=== PATIENT | female | born 1935 | race Caucasian/White ===

== ENCOUNTER 2019-05-03 16:58 | Emergency (ER) | payer OTHER ==
[2019-05-03 17:31] VITALS: TEMP 97.3; BMI 25.0
[2019-05-03 18:04] LABS: BASO % 0.4 % (0-2.0); EOS % 0.2 % (0-4.5); HEMOGLOBIN 13.7 GM/dl (10.7-15.3); MCH 30.7 pg (25.7-33.7); MCHC 33.5 g/dl (32.0-36.0); MEAN CELL VOLUME 91.8 fl (80-96); MONO % 4.6 % (3.8-10.2); NEUT % 82.8 % (42.8-82.8); PLATELET COUNT 194 K/MM3 (134-434); RBC 4.47 M/mm3 (3.60-5.2); RDW 11.8 % (11.6-15.6); WHITE BLOOD COUNT 8.7 K/mm3 (4.0-10.8)
[2019-05-03 18:18] LABS: ALBUMIN 4.2 g/dl (3.4-5.0); CALCIUM 9.3 mg/dl (8.5-10); CREATININE 0.6 mg/dl (0.55-1.3); POTASSIUM 4.2 mmol/L (3.5-5.1); TOT PROT 6.9 g/dl (6.4-8.2)
[2019-05-03] MEDS ORDERED: ACETAMINOPHEN 325 MG TABLET (FP) PO ONE (18:50)
[2019-05-03] MEDS ORDERED: ACETAMINOPHEN 325 MG TABLET (FP) ONE (18:51)
[2019-05-03 18:59] VITALS: BP 199/103; PULSE 65
[2019-05-03] MEDS ORDERED: amLODIPine BESYLATE 5 MG TABLET (FP) PO ONE (19:01)
[2019-05-03] MEDS ORDERED: amLODIPine BESYLATE 5 MG TABLET (FP) ONE ×2 (19:01→19:04)
--- NOTE | 2019-05-03 19:01 | PDOC ---
Documentation entered by Ruth English SCRIBE, acting as scribe for Deejay Renteria MD. Deejay Renteria MD: This documentation has been prepared by the Tameka greoc Adrianna, SCRIBE, under my direction and personally reviewed by me in its entirety. I confirm that the documentation accurately reflects all work, treatment, procedures, and medical decision making performed by me. History of Present Illness - General Chief Complaint: Injury Stated Complaint: FELL - History of Present Illness Initial Comments: The patient is an 84 year old female, with a significant PMH of CABG, hypertension, hyperlipidemia, diabetes, and osteoporosis, who presents to the ED for evaluation s/p unwitnessed fall. Patients daughter assists in providing history at bedside. Patient was doing laundry earlier today, when she fell and hit the back of her head (unsure of what she hit it on). She denies any LOC, can recall the event, and called her daughter for assistance immediately. Daughter notes her blood sugar levels has been inconsistent the past 3 days, ranging from 350 to 180, and believes this may be causal. Patient additionally fell forward 3 days ago, but denies any LOC or head contusion at that time. Patient reports feeling shaky and foggy, stiff in her bilateral lower extremities, and endorses right shoulder pain and low back pain secondary to her most recent fall. She denies any head pain, but is on aspirin daily. Denies any recent changes to her daily medications. Daughter called her PCP today regarding her fall, who advised she come to the ED for further evaluation. Allergies: NKA, NKDA Surgical History: CABG Social History: Lives with family. Denies EtOH, tobacco, or illicit drug use PCP: Dr. Sanches Past History - Past Medical History Allergies/Adverse Reactions: Allergies Allergy/AdvReac Type Severity Reaction Status Date / Time No Known Allergies Allergy Verified 05/03/19 17:21 Home Medications: Ambulatory Orders Aspirin Coated [Ecotrin -] 81 mg PO DAILY 09/12/11 Calcium Carb/Vit D3/Minerals [Calcium 600 + D Tablet] 2 each PO DAILY tablet Atorvastatin Ca [Lipitor] 20 mg PO DAILY 05/03/19 Gabapentin 100 mg PO DAILY 05/03/19 Losartan Potassium [Cozaar -] 50 mg PO DAILY 05/03/19 Anemia: No Asthma: No Cancer: No Cardiac Disorders: Yes (CABG X 2 1992) CVA: No COPD: No CHF: No Dementia: No Diabetes: No GI Disorders: No Disorders: No HTN: Yes Hypercholesterolemia: No Liver Disease: No Seizures: No Thyroid Disease: No - Surgical History Abdominal Surgery: No Appendectomy: No Cardiac Surgery: Yes (CABG X2 1992) Cholecystectomy: No Lung Surgery: No Neurologic Surgery: No Orthopedic Surgery: No - Psycho Social/Smoking Cessation Hx Smoking Status: No Smoking History: Never smoked Have you smoked in the past 12 months: No Number of Cigarettes Smoked Daily: 0 Hx Alcohol Use: No Drug/Substance Use Hx: No Substance Use Type: None Hx Substance Use Treatment: No Review of Systems - Review of Systems Comments:: CONSTITUTIONAL: +Shaky. +Foggy. +S/p unwitnessed fall. Absent: Fever, Chills, Diaphoresis, Malaise, Loss of Appetite HEENT: +S/p head contusion secondary to fall. Absent: Rhinorrhea, Nasal Congestion, Throat Pain, Throat Swelling, Difficulty Swallowing, Mouth Swelling, Ear Pain, Eye Pain, Visual Changes CARDIOVASCULAR: Absent: Chest Pain, Syncope, Palpitations, Irregular Heart Rate, Lightheadedness , Peripheral Edema RESPIRATORY: Absent: Cough, Shortness of Breath, SOB with Exertion, Orthopnea, Wheezing, Stridor, Hemoptysis GASTROINTESTINAL: Absent: Abdominal pain, Abdominal Distension, Nausea, Vomiting, Diarrhea, Constipation, Melena, Hematochezia GENITOURINARY: Absent: Dysuria, Frequency, Urgency, Hesitancy, Flank Pain, Genital Pain MUSCULOSKELETAL: +Stiff bilateral lower extremities. +Right shoulder pain. +Low back pain. Absent: Joint Swelling, Neck Pain SKIN: Absent: Rash, Itching, Pallor HEMATOLOGIC/IMMUNOLOGIC: Absent: Easy Bleeding, Easy Bruising, Lymphadenopathy, Frequent infections ENDOCRINE: Absent: Unexplained Weight Gain, Unexplained Weight Loss, Heat Intolerance, Cold Intolerance NEUROLOGIC: +Foggy. Absent: Headache, Focal Weakness, Paresthesias, Vertigo, Lightheadedness, Unsteady Gait, Seizure, Mental Status Changes, Incontinence PSYCHIATRIC: Absent: Anxiety, Depression *Physical Exam - Vital Signs Last Vital Signs Temp Pulse Resp BP Pulse Ox 97.3 F L 72 17 184/99 H 100 05/03/19 16:59 05/03/19 16:59 05/03/19 16:59 05/03/19 16:59 05/03/19 16:59 - Physical Exam Comments: GENERAL: The patient is awake, alert, and fully oriented, in no acute distress. HEAD: Normal with no signs of trauma. No bruising, swelling, abrasions, or lacerations of the scalp. EYES: Pupils equal, round and reactive to light, extraocular movements intact, sclera anicteric, conjunctiva clear. ENT: Ears normal, nares patent, oropharynx clear without exudates. Moist mucous membranes. NECK: Normal range of motion, supple without lymphadenopathy, JVD, or masses. Cervical spine non-tender. LUNGS: Breath sounds equal, clear to auscultation bilaterally. No wheezes, and no crackles. HEART: Regular rate and rhythm, normal S1 and S2 without murmur, rub or gallop. ABDOMEN: Soft, nontender, normoactive bowel sounds. No guarding, no rebound. No masses. BACK: No spinal tenderness throughout. No rib cage tenderness. EXTREMITIES: +Ecchymosis to the medial aspect of the right knee. Normal range of motion, no edema. No clubbing or cyanosis. No cords, erythema, or tenderness. NEUROLOGICAL: Cranial nerves II through XII grossly intact. Normal speech, normal gait. Motor strength normal in all extremities, no pronator drift. Sensation intact throughout. PSYCH: Normal mood, normal affect. SKIN: +Ecchymosis to the medial aspect of the right knee. Warm, Dry, normal turgor. Heart Score/ECG Review - ECG Impressions Comment:: 05/03/19 18:52 Twelve-lead EKG shows normal sinus rhythm at 61 bpm. The axis is normal. The intervals are normal. There are no acute ST elevations or depressions. There are no abnormal T waves. Impression: Normal twelve-lead EKG. ED Treatment Course - LABORATORY CBC & Chemistry Diagram: 05/03/19 17:50 05/03/19 17:50 - ADDITIONAL ORDERS Additional order review: Laboratory Results 05/03/19 05/03/19 05/03/19 17:50 17:50 17:09 Sodium 136 Potassium 4.2 Chloride 99 Carbon Dioxide 27 Anion Gap 10 BUN 21.0 H Creatinine 0.6 Est GFR (CKD-EPI)AfAm 97.69 Est GFR (CKD-EPI)NonAf 84.29 POC Glucometer 146 Random Glucose 148 H Calcium 9.3 Total Bilirubin 1.0 AST 45 H ALT 16 Alkaline Phosphatase 72 Troponin I < 0.03 Total Protein 6.9 Albumin 4.2 05/03/19 05/03/19 17:50 17:09 RBC 4.47 MCV 91.8 MCHC 33.5 RDW 11.8 MPV 10.0 Neutrophils % 82.8 Lymphocytes % 12.0 Monocytes % 4.6 Eosinophils % 0.2 Basophils % 0.4 POC Glucometer 146 - RADIOLOGY Radiology Studies Ordered: Category Date Time Status HEAD CT WITHOUT CONTRAST [CT] Stat CT Scan 05/03/19 17:31 Taken Radiograph Interpretation: Exam: CT head without IV contrast. Clinical indication:Head trauma. Impression:1. No definite acute intracranial abnormality. 2. Mild chronic small vessel ischemic changes. 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 She had a fall several days ago, and then she fell again today. There are no symptoms of infection. There are no cardiac symptoms. There is no difficulty breathing. Patient complains of achiness in the shoulders and bumping the back of her head while taking aspirin for prevention. There was no loss of consciousness. And there are no symptoms of any neurological deficits. Examination of the scalp shows no abrasion or hematoma. Neck is normal range of motion and nontender. Lungs are clear and rib cage is nontender. Heart is regular rhythm with normal S1 and S2 without murmurs. Abdomen is benign and extremities have normal range of motion in all joints. There is some mild discomfort in the right shoulder with extreme extension or abduction. However, there is no point bony tenderness. Spine is nontender throughout. Neurological examination is normal. CT scan of the head was performed given patient's age, head trauma, and antiplatelet agent aspirin. CT scan shows no acute findings. There are age- related changes. Laboratory work-up done to rule out anemia or electrolyte imbalance. Labs are overall unremarkable. No anemia. No leukocytosis, normal platelets. Chemistries with notable mild transaminase elevation of the AST to 45, but not of acute significance. Troponin negative. Glucose 148. Blood pressure is somewhat elevated, but patient has chronic hypertension and no symptoms of endorgan dysfunction. Repeat blood pressure to be checked. Patient to continue her blood pressure medication. Laboratory Results - last 24 hr 05/03/19 05/03/19 05/03/19 17:09 17:50 17:50 WBC 8.7 RBC 4.47 Hgb 13.7 Hct 41.0 MCV 91.8 MCH 30.7 MCHC 33.5 RDW 11.8 Plt Count 194 MPV 10.0 Absolute Neuts (auto) 7.3 Neutrophils % 82.8 Lymphocytes % 12.0 Monocytes % 4.6 Eosinophils % 0.2 Basophils % 0.4 Sodium 136 Potassium 4.2 Chloride 99 Carbon Dioxide 27 Anion Gap 10 BUN 21.0 H Creatinine 0.6 Est GFR (CKD-EPI)AfAm 97.69 Est GFR (CKD-EPI)NonAf 84.29 POC Glucometer 146 Random Glucose 148 H Calcium 9.3 Total Bilirubin 1.0 AST 45 H ALT 16 Alkaline Phosphatase 72 Troponin I Total Protein 6.9 Albumin 4.2 05/03/19 17:50 WBC RBC Hgb Hct MCV MCH MCHC RDW Plt Count MPV Absolute Neuts (auto) Neutrophils % Lymphocytes % Monocytes % Eosinophils % Basophils % Sodium Potassium Chloride Carbon Dioxide Anion Gap BUN Creatinine Est GFR (CKD-EPI)AfAm Est GFR (CKD-EPI)NonAf POC Glucometer Random Glucose Calcium Total Bilirubin AST ALT Alkaline Phosphatase Troponin I < 0.03 Total Protein Albumin 05/03/19 18:57 The scribe's documentation has been prepared under my direction and personally reviewed by me in its entirety. I have confirmed that the note above accurately reflects all work, treatment, procedures, and medical decision- making performed by me. Vital Signs (72 hours) 05/03/19 16:59 Temperature 97.3 F L Pulse Rate 72 Respiratory 17 Rate Blood Pressure 184/99 H O2 Sat by Pulse 100 Oximetry (%) Blood pressure to be rechecked prior to discharge. Discharge - Discharge Information Problems reviewed: Yes Clinical Impression/Diagnosis: Head trauma Qualifiers: Encounter type: initial encounter Qualified Code(s): S09.90XA - Unspecified injury of head, initial encounter Fall Qualifiers: Encounter type: initial encounter Qualified Code(s): W19.XXXA - Unspecified fall, initial encounter Condition: Stable Disposition: HOME - Admission No - Follow up/Referral Referrals: Adriano Sanches MD [Primary Care Provider] - - Patient Discharge Instructions Patient Printed Discharge Instructions: DI for Closed Head Injury Additional Instructions: Today you were evaluated for falling with a head injury. The CT scan of the head was normal. The blood tests were also in good range. Rest at home today. Eat a healthy, nutritious, diabetic diet. Follow-up as planned with Dr. Sanches on Sunday. Return to the emergency department for any severe or progressive symptoms. - Post Discharge Activity
--- NOTE | 2019-05-04 10:36 | EKG ---
Test Reason : Blood Pressure : / mmHG Vent. Rate : 061 BPM Atrial Rate : 061 BPM P-R Int : 204 ms QRS Dur : 096 ms QT Int : 422 ms P-R-T Axes : 036 046 044 degrees QTc Int : 424 ms NORMAL SINUS RHYTHM NORMAL ECG NO PREVIOUS ECGS AVAILABLE Confirmed by MD GREER, JAMES ([id number]) on 05/04/2019 10:36:05 AM Referred By: Confirmed By:JAMES BUTTERFIELD MD
== END 2019-05-03 19:15 | disposition home or self-care (01) ==
LOC: FER 16:58
DX: S09.90XA Unspecified injury of head, initial encounter (principal); W18.39XA Other fall on same level, initial encounter; Y93.E2 Activity, laundry; Y92.009 Unspecified place in unspecified non-institutional (private) residence as the place of occurrence of the external cause; Z79.82 Long term (current) use of aspirin; E11.9 Type 2 diabetes mellitus without complications; Z95.1 Presence of aortocoronary bypass graft; I10 Essential (primary) hypertension
CPT/HCPCS: 36415; 70450-TC; 80053; 82962; 84484; 85025; 93005; 99283-25

== ENCOUNTER 2020-04-13 13:49 | Inpatient (IN) | payer OTHER ==
--- NOTE | 2020-04-13 14:28 | PDOC ---
History of Present Illness - General Chief Complaint: Wound Stated Complaint: LEFT LEG WOUND Time Seen by Provider: 04/13/20 14:07 History Source: Patient, Family - History of Present Illness Initial Comments: 04/13/20 14:25 85F PMH HTN, HLD, CAD s/p CABG, DM presenting for evaluation of non-healing left leg wound that became purulent w/ foul smell, red, and with throbbing pain since 04/10/20. Wound has been present for 9 months and has not healed well. Redness has not spread. Denies f/c. Denies n/v/d, abd pain, dysuria. NKDA. PCP Dr. Sanches. Daughter present at bedside assisting with hx. Past History - Medical History Allergies/Adverse Reactions: Allergies Allergy/AdvReac Type Severity Reaction Status Date / Time No Known Allergies Allergy Verified 04/13/20 14:09 Home Medications: Ambulatory Orders Calcium Carb/Vit D3/Minerals [Calcium 600 + D Tablet] 2 each PO DAILY tablet 11/01/12 Atorvastatin Ca [Lipitor] 20 mg PO DAILY 05/03/19 Gabapentin 300 mg PO HS 05/03/19 Aspirin [ASA -] 81 mg PO DAILY 04/13/20 Irbesartan [Avapro (Nf) -] 150 mg PO DAILY 04/13/20 metFORMIN HCL [Metformin ER Osmotic] 500 mg PO BID 04/13/20 Bacitracin - [Bacitracin Topical Ointment -] 1 applic TP DAILY #1 tube 04/15/20 Calcium Acetate/Al Sulfate Top [Domeboro -] 1.9 gm TP DAILY #1 packet 04/15/20 Anemia: No Asthma: No Cancer: No Cardiac Disorders: Yes (CABG X 2 1992) CVA: No COPD: No CHF: No Dementia: No Diabetes: No GI Disorders: No Disorders: No HTN: Yes Hypercholesterolemia: No Liver Disease: No Seizures: No Thyroid Disease: No - Surgical History Abdominal Surgery: No Appendectomy: No Cardiac Surgery: Yes (CABG X2 1992) Cholecystectomy: No Lung Surgery: No Neurologic Surgery: No Orthopedic Surgery: No - Reproductive History Is Patient Now?: No - Psycho-Social/Smoking History Smoking Status: No Smoking History: Unknown if ever smoked Have you smoked in the past 12 months: No Number of Cigarettes Smoked Daily: 0 Review of Systems - Review of Systems Comments:: CONSTITUTIONAL: Denies F / C HEENT: Denies sore throat, rhinorrhea RESP: Denies SOB CARD: Denies chest pain GI: Denies N / V / D, abdominal pain, inability to tolerate PO : Denies dysuria NEURO: Denies numbness, tingling, weakness MSK: + LLE wound SKIN: + LLE wound *Physical Exam - Vital Signs Last Vital Signs Temp Pulse Resp BP Pulse Ox 98.2 F 74 16 140/76 100 04/13/20 14:07 04/13/20 14:07 04/13/20 14:07 04/13/20 14:07 04/13/20 14:07 - Physical Exam GEN: Well appearing, nontoxic, NAD, comfortable. AAOx3. HEENT: NC/AT, EOMI, PERRL. No facial asymmetry. Normal voice. Supple neck w/ FROM. CV: S1/S2, RRR, no m/r/g LUNG: CTAB, no wheezes, crackles, rales, rhonchi. GI: Soft, ndnt MSK: There is an approx 2x3cm foul smelling wound of the left magallon with crusted purulence and underlying erythema and edema. Erythema does not involve joint lines. The affected area is warmer to touch compared to contralateral area. No obvious deformities SKIN: Warm, dry, no rashes appreciated. PSYCH: Normal mood and affect. NEURO: Moving all extremities well. ED Treatment Course - LABORATORY CBC & Chemistry Diagram: 04/14/20 07:36 04/16/20 06:28 Medical Decision Making - Medical Decision Making 85F diabetic here for eval of purulent foul smelling left magallon wound. Afebrile, nontoxic appearing. Wound is localized to left magallon. - CBC, CMP - Wound culture - IV clinda and cipro - XR tib/fib - admit 04/13/20 16:59 labs and xr reviewed admit Discharge - Discharge Information Problems reviewed: Yes Clinical Impression/Diagnosis: Cellulitis of leg, left, Leg wound, left Condition: Stable - Admission Yes - Follow up/Referral - Patient Discharge Instructions - Post Discharge Activity
[2020-04-13] MEDS ORDERED: CIPROFLOXACIN 400 MG/D5W 400 MG/200 ML IVPB IVPB ONE (14:33)
[2020-04-13] MEDS ORDERED: CLINDAMYCIN 600MG PREMIX IVPB 600 MG/50 ML BAG IVPB ONE (14:33)
[2020-04-13] MEDS ORDERED: CLINDAMYCIN PHOSPHATE 600 MG/4 ML VIAL ONE (15:04)
--- NOTE | 2020-04-13 15:08 | PDOC ---
Attending Attestation - Resident Resident Name: RoqueMir - ED Attending Attestation I have performed the following: I have examined & evaluated the patient, The case was reviewed & discussed with the resident, I agree w/resident's findings & plan - HPI HPI: 04/13/20 15:03 High functioning 85-year-old female with history of diabetes presents with concern for infection of left magallon wound. Patient has had superficial skin wound of left magallon for about 7 months, over the last few days the wound has become more painful with surrounding redness and foul-smelling discharge. No fevers or chills, no motor or sensory deficit, no associated hyperglycemia. - Physicial Exam PE: 04/13/20 15:06 Afebrile, vital signs stable Well-appearing pleasant woman seated comfortably in stretcher Heart is regular, lungs are clear, abdomen benign Left lower extremity: There is a 3 cm circular left magallon wound with foul- smelling purulence and an additional 2 to 3 cm of surrounding erythema/cellulitis, not circumferential. 2+ distal pulses, full range of motion of all joints. No crepitus - Medical Decision Making 04/13/20 15:07 85-year-old diabetic female with infected leg wound, otherwise hemodynamically stable without evidence of sepsis. Labs, wound culture IV antibiotics including Pseudomonas coverage Will need debridement, admit for wound care, IV antibiotics Heart Score/ECG Review #1 ECG reviewed & interpreted by me at: 14:29 General ECG Interpretation: Sinus Rhythm, Normal Rate (69), Normal Intervals (qtc [id number]), No acute ischemic changes Discharge - Discharge Information Problems reviewed: Yes Clinical Impression/Diagnosis: Cellulitis of leg, left Leg wound, left Qualifiers: Encounter type: initial encounter Qualified Code(s): S81.802A - Unspecified open wound, left lower leg, initial encounter Condition: Good - Follow up/Referral - Patient Discharge Instructions - Post Discharge Activity
[2020-04-13 15:36] LABS: INR 1.03 (0.83-1.09); PROTHROMBIN TIME (PATIENT) 12.1 SEC (9.7-13.0)
[2020-04-13 15:39] LABS: ACTIVATED PTT 31.8 SECONDS (25.2-36.5)
[2020-04-13 15:40] LABS: BASO % 0.6 % (0-2.0); EOS % 0.2 % (0-4.5); HEMATOCRIT 36.3 % (32.4-45.2); LYMPH % 15.1 % (8-40); MCH 30.2 pg (25.7-33.7); MCHC 33.1 g/dl (32.0-36.0); MEAN CELL VOLUME 91.3 fl (80-96); MEAN PLT VOLUME 9.2 fl (7.5-11.1); NEUT % 77.1 % (42.8-82.8); PLATELET COUNT 203 K/MM3 (134-434); RBC 3.98 M/mm3 (3.60-5.2); RDW 13.2 % (11.6-15.6); WHITE BLOOD COUNT 6.5 K/mm3 (4.0-10.0)
[2020-04-13 15:58] LABS: ALBUMIN 3.5 g/dl (3.4-5.0); BILIRUBIN,TOTAL 0.3 mg/dL (0.2-1); BLOOD UREA NITROGEN 20.3 mg/dL (7-18); CALCIUM 9.3 mg/dL (8.5-10.1); CREATININE 0.9 mg/dL (0.55-1.3); POTASSIUM 4.3 mmol/L (3.5-5.1); TOT PROT 6.5 g/dl (6.4-8.2)
[2020-04-13] MEDS ORDERED: SODIUM CHLORIDE 0.9% 500 ML INFUS.BAG IV ONE (16:04)
[2020-04-13 17:37] LABS: PH,URINE 6.5 (5.0-8.0); URINE APPEARANCE CLEAR; URINE BILIRUBIN NEGATIVE (NEGATIVE); URINE COLOR YELLOW; URINE GLUCOSE (UA) 3+ (NEGATIVE); URINE KETONE NEGATIVE (NEGATIVE); URINE LEUK ESTERASE NEGATIVE (NEGATIVE); URINE NITRITE NEGATIVE (NEGATIVE); URINE PROTEIN NEGATIVE (NEGATIVE); URINE UROBILINOGEN 0.2 mg/dL (0.2-1.0)
--- NOTE | 2020-04-13 18:40 | HP ---
CHIEF COMPLAINT: Left leg ulcer PCP: Verónica HISTORY OF PRESENT ILLNESS: 85 year old F (Somali-speaking) with PMH HTN, HLD, CAD s/p CABG, DM, presented to ED for L leg wound infection. Pt stated that she had wound since 9 months ago after trauma to the L leg. The wound never healed properly over the course of this time. Pt noticed it becoming more red and expressing pus over the weekend. Pt denied any trauma, changes in soap/detergent. Pt has tried bacitracin, hot compresses and liquid bandages without relief of her symptoms. Pt stated that the wound was throbbing most of the time. Denied fevers, chills, SOB, C/P, abd pain, N/V/D. ER course was notable for: (1) tib/fib xray w/o acute fracture, no signs of tissue ulcer. No acute findings. Chronic vascular calcifications (2) Given ciprofloxacin and clindamycin (3) 1L NS Recent Travel: denies PAST MEDICAL HISTORY: as per HPI PAST SURGICAL HISTORY: CABG 1992, Pin in R hip Social History: Smoking: denied Alcohol: 2 drinks per week at dinner time Drugs: denies Allergies No Known Allergies Allergy (Verified 04/13/20 14:09) HOME MEDICATIONS: Home Medications Medication Instructions Recorded Calcium Carb/Vit D3/Minerals 2 each PO DAILY tablet 11/01/12 [Calcium 600 + D Tablet] Atorvastatin Ca [Lipitor] 20 mg PO DAILY 05/03/19 Gabapentin 300 mg PO HS 05/03/19 Losartan Potassium [Cozaar -] 50 mg PO DAILY 05/03/19 Aspirin [ASA -] 81 mg PO DAILY 04/13/20 Irbesartan [Avapro (Nf) -] 150 mg PO DAILY 04/13/20 metFORMIN HCL [Metformin ER 500 mg PO BID 04/13/20 Osmotic] REVIEW OF SYSTEMS As per hpi PHYSICAL EXAMINATION Vital Signs - 24 hr 04/13/20 04/13/20 14:07 14:13 Temperature 98.2 F Pulse Rate 74 Respiratory 16 Rate Blood Pressure 140/76 O2 Sat by Pulse 100 100 Oximetry (%) GENERAL: Awake, alert, and fully oriented, in no acute distress. HEENT: NCAT, EOMI, moist mucus membranes LUNGS: CTA b/l, no wheezes HEART: Regular rate and rhythm, normal S1 and S2 without murmur ABDOMEN: Soft, nontender, not distended, normoactive bowel sounds EXTREMITIES: LLE circular ulcer, expresses purulent discharge. Surrounding erythema. Tender to palpation. SKIN: Warm, dry. Lesion on LLE is warm and erythematous. Laboratory Last Values WBC 6.5 K/mm3 (4.0-10.0) 04/13/20 15:20 RBC 3.98 M/mm3 (3.60-5.2) 04/13/20 15:20 Hgb 12.0 GM/dL (10.7-15.3) 04/13/20 15:20 Hct 36.3 % (32.4-45.2) 04/13/20 15:20 MCV 91.3 fl (80-96) 04/13/20 15:20 MCH 30.2 pg (25.7-33.7) 04/13/20 15:20 MCHC 33.1 g/dl (32.0-36.0) 04/13/20 15:20 RDW 13.2 % (11.6-15.6) 04/13/20 15:20 Plt Count 203 K/MM3 (134-434) 04/13/20 15:20 MPV 9.2 fl (7.5-11.1) 04/13/20 15:20 Absolute Neuts (auto) 5.0 K/mm3 (1.5-8.0) 04/13/20 15:20 Neutrophils % 77.1 % (42.8-82.8) 04/13/20 15:20 Lymphocytes % 15.1 % (8-40) 04/13/20 15:20 Monocytes % 7.0 % (3.8-10.2) 04/13/20 15:20 Eosinophils % 0.2 % (0-4.5) 04/13/20 15:20 Basophils % 0.6 % (0-2.0) 04/13/20 15:20 Nucleated RBC % 0 % (0-0) 04/13/20 15:20 PT with INR 12.10 SEC (9.7-13.0) 04/13/20 15:20 INR 1.03 (0.83-1.09) 04/13/20 15:20 PTT (Actin FS) 31.8 SECONDS (25.2-36.5) 04/13/20 15:20 Sodium 140 mmol/L (136-145) 04/13/20 15:20 Potassium 4.3 mmol/L (3.5-5.1) 04/13/20 15:20 Chloride 106 mmol/L (98-107) 04/13/20 15:20 Carbon Dioxide 31 mmol/L (21-32) 04/13/20 15:20 Anion Gap 3 MMOL/L (8-16) L 04/13/20 15:20 BUN 20.3 mg/dL (7-18) H 04/13/20 15:20 Creatinine 0.9 mg/dL (0.55-1.3) 04/13/20 15:20 Est GFR (CKD-EPI)AfAm 68.05 04/13/20 15:20 Est GFR (CKD-EPI)NonAf 58.71 04/13/20 15:20 Random Glucose 238 mg/dL (74-106) H 04/13/20 15:20 Calcium 9.3 mg/dL (8.5-10.1) 04/13/20 15:20 Total Bilirubin 0.3 mg/dL (0.2-1) 04/13/20 15:20 AST 14 U/L (15-37) L 04/13/20 15:20 ALT 12 U/L (13-61) L 04/13/20 15:20 Alkaline Phosphatase 96 U/L (45-117) 04/13/20 15:20 Total Protein 6.5 g/dl (6.4-8.2) 04/13/20 15:20 Albumin 3.5 g/dl (3.4-5.0) 04/13/20 15:20 Urine Color Yellow 04/13/20 17:02 Urine Appearance Clear 04/13/20 17:02 Urine pH 6.5 (5.0-8.0) 04/13/20 17:02 Ur Specific [place] 1.020 (1.010-1.035) 04/13/20 17:02 Urine Protein Negative (NEGATIVE) 04/13/20 17:02 Urine Glucose (UA) 3+ (NEGATIVE) H 04/13/20 17:02 Urine Ketones Negative (NEGATIVE) 04/13/20 17:02 Urine Blood Negative (NEGATIVE) 04/13/20 17:02 Urine Nitrite Negative (NEGATIVE) 04/13/20 17:02 Urine Bilirubin Negative (NEGATIVE) 04/13/20 17:02 Urine Urobilinogen 0.2 mg/dL (0.2-1.0) 04/13/20 17:02 Ur Leukocyte Esterase Negative (NEGATIVE) 04/13/20 17:02 Active Medications Aspirin (Asa -) 81 mg PO DAILY PADMINI Atorvastatin Calcium (Lipitor -) 20 mg PO DAILY PDAMINI Enoxaparin Sodium (Lovenox -) 40 mg SQ DAILY PADMINI Gabapentin (Neurontin -) 300 mg PO HS PADMINI Piperacillin Sod/Tazobactam (Sod 3.375 gm/ Dextrose) 50 mls @ 100 mls/hr IVPB Q8H-IV PADMINI; Protocol Piperacillin Sod/Tazobactam (Sod 3.375 gm/ Dextrose) 50 mls @ 100 mls/hr IVPB Q8H-IV PADMINI; Protocol Stop: 04/14/20 18:29 Insulin Aspart (Novolog Vial Sliding Scale -) 1 vial SQ ACHS PADMINI; Protocol Losartan Potassium (Cozaar -) 50 mg PO DAILY PADMINI Metoprolol Succinate (Toprol Xl -) 25 mg PO 1/2 TAB DAILY PADMINI Vancomycin HCl (Vancomycin (Pre-Docked)) 1,000 mg IVPB DAILY PADMINI; Protocol Vancomycin HCl (Vancomycin (Pre-Docked)) 1,000 mg IVPB DAILY PADMINI; Protocol Stop: 04/14/20 10:01 ASSESSMENT/PLAN: 85 year old F (Somali-speaking) with PMH HTN, HLD, CAD s/p CABG, DM, presented to ED for L leg wound infection. She is admitted for possible diabetic ulcer with surrounding cellulitis of LLE. Ulcer and cellulitis -Tib/fib xray of LLE reviewed. No sign soft tissue ulcer. No acute fx. Positive for loss of bone density, mild arthritic changes, chronic vascular calcifications. -No concern for osteomyelitis at this time. - ID and Vascular consulted. -c/w Vancomycin 1g qD and Zosyn 3.375 q8H -c/w gabapentin 300 qHS -f/u wound culture, b -f/u LLE duplex r/o DVT -c/w local wound care w/ topical bacitracin and leg elevation. HTN, HLD, CAD s/p CABG - c/w ASA 81mg, losartan 50mg qD, atorvastatin 20mg qD, metoprolol 12.5mg qD DM -ISS and BGM ACHS -f/u HbA1c Ppx -DVT: lovenox FEN -no standing fluids -replete lytes as needed -sodium/diabetic diet Dispo: admit to med/surg. Needs Meds recc'ed Family Medical History Family History: Unremarkable Visit type - Medication Review Med list reviewed for High Risk Meds patients 65 and older: Yes - Emergency Visit Emergency Visit: Yes ED Registration Date: 04/13/20 Care time: The patient presented to the Emergency Department on the above date and was hospitalized for further evaluation of their emergent condition. - New Patient This patient is new to me today: No - Critical Care Critical Care patient: No ATTENDING PHYSICIAN STATEMENT I saw and evaluated the patient. I reviewed the resident's note and discussed the case with the resident. I agree with the resident's findings and plan as documented. SUBJECTIVE: OBJECTIVE: ASSESSMENT AND PLAN:
[2020-04-13] MEDS ORDERED: ENOXAPARIN NA (PORCINE) 40 MG/0.4 ML DISP.SYRIN SQ ONE (18:46)
[2020-04-13] MEDS: ENOXAPARIN NA (PORCINE) 40 MG/0.4 ML DISP.SYRIN SQ SCH (18:50)
--- OUTSIDE RECORDS SUMMARY | 2020-04-13 20:24 | XMS ---
:1935 Author Organization [facility] Support Name Relationship Address Phone RE, RETIRED Unavailable Unavailable Unavailable RE Unavailable Unavailable Unavailable VANNESA BAÑUELOS DAUGHTER [address] [facility] [place] [address] Re-disclosure Warning The records that you are about to access may contain information from federally- assisted alcohol or drug abuse programs. If such information is present, then the following federally mandated warning applies: This information has been disclosed to you from records protected by federal confidentiality rules (42 CFR part 2). The federal rules prohibit you from making any further disclosure of this information unless further disclosure is expressly permitted by the written consent of the person to whom it pertains or as otherwise permitted by 42 CFR part 2. A general authorization for the release of medical or other information is NOT sufficient for this purpose. The Federal rules restrict any use of the information to criminally investigate or prosecute any alcohol or drug abuse patient.The records that you are about to access may contain highly sensitive health information, the redisclosure of which is protected by Article 27-F of the [facility] Public Health law. If you continue you may haveaccess to information: Regarding HIV / AIDS; Provided by facilities licensed or operated by the [facility] Office of Mental Health; or Provided by the [facility] Office for People With Developmental Disabilities. If such information is present, then the following [facility] mandated warning applies: This information has been disclosed to you from confidential records which are protected by state law. State law prohibits you from making any further disclosure of this information without the specific written consent of the person to whom it pertains, or as otherwise permitted by law. Any unauthorized further disclosure in violation of state law may result in a fine or long-term sentence or both. A general authorization for the release of medical or other information is NOT sufficient authorization for further disclosure. Insurance Providers Payer name Policy type Policy ID Covered Covered alliance party's Policy P jeffery / Coverage alliance party ID relationship to Stein Inf ormation type stein AETNA MEBRSCBJ SP MEBR[place] MEDICARE AETNA (PPO) [id number] 1 [place] [id number] 1 [id number] PART B [facility] [id number] (PPO) [place] MED[place] [id number] PART B A [employer] A[employer] MEBRSCBJ SP MEBRSCBJ MEDICARE MEDICARE [id number] SP [id number]
[2020-04-13] MEDS: metoPROLOL SUCCINATE 25 MG TAB.SR.24H (FP) PO SCH (20:45)
[2020-04-13] MEDS ORDERED: metoPROLOL SUCCINATE 25 MG TAB.SR.24H (FP) ONE (21:11)
[2020-04-13] MEDS: INSULIN SLIDING SCALE (NOVOLOG) 1 VIAL SQ SCH (22:34)
[2020-04-13] MEDS: GABAPENTIN 300 MG CAPSULE PO SCH (22:35)
--- NOTE | 2020-04-13 22:42 | PN ---
Teaching Attending Note Name of Resident: Miriam Galo ATTENDING PHYSICIAN STATEMENT I saw and evaluated the patient. I reviewed the resident's note and discussed the case with the resident. I agree with the resident's findings and plan as documented. SUBJECTIVE: Patient seen and examined at bedside, endorses hitting her L magallon about 1-2 weeks ago, now presents w/ L magallon infected ulcer. VSS. OBJECTIVE: GA comfortable, AAox3, daughter at bedside HEENT NC/AT, no oral thrush, dry MM, neck supple, EOMI Chest CTAB, no crackles or wheezing CVS S1, S2+, AMADEO+, RRR Abd Soft, mildly distended, NT, BS+ Ext no LE edema, L anterior tibial open ulcer with white-foul smelling discharge, mild L calf erythema/swelling, pedal pulses+ Vital Signs (72 hours) 04/13/20 04/13/20 04/13/20 14:07 14:13 21:37 Temperature 98.2 F Pulse Rate 74 Pulse Rate [ 94 H Left Radial] Respiratory 16 Rate Blood Pressure 140/76 Blood Pressure 191/84 H [Left Arm] O2 Sat by Pulse 100 100 Oximetry (%) 04/13/20 04/13/20 04/14/20 21:50 22:39 05:00 Temperature 98.6 F 97.5 F L Pulse Rate 58 L 52 L Pulse Rate [ 76 Left Radial] Respiratory 20 18 18 Rate Blood Pressure 168/88 156/76 Blood Pressure 160/85 [Left Arm] O2 Sat by Pulse 100 94 L 95 Oximetry (%) 04/14/20 06:43 Temperature 97.5 F L Pulse Rate 52 L Pulse Rate [ Left Radial] Respiratory 20 Rate Blood Pressure 156/76 Blood Pressure [Left Arm] O2 Sat by Pulse 99 Oximetry (%) Microbiology 04/13/20 14:53 Wound Gram Stain - Final 04/13/20 14:53 Wound Wound Culture - Preliminary Lactose Fermenting Neg Bacilli Non Lactose Fermenting Gnb Laboratory Results - last 24 hr 04/13/20 04/13/20 04/13/20 15:20 15:20 15:20 WBC 6.5 RBC 3.98 Hgb 12.0 Hct 36.3 MCV 91.3 MCH 30.2 MCHC 33.1 RDW 13.2 Plt Count 203 MPV 9.2 Absolute Neuts (auto) 5.0 Neutrophils % 77.1 Lymphocytes % 15.1 Monocytes % 7.0 Eosinophils % 0.2 Basophils % 0.6 Nucleated RBC % 0 PT with INR 12.10 INR 1.03 PTT (Actin FS) 31.8 Sodium 140 Potassium 4.3 Chloride 106 Carbon Dioxide 31 Anion Gap 3 L BUN 20.3 H Creatinine 0.9 Est GFR (CKD-EPI)AfAm 68.05 Est GFR (CKD-EPI)NonAf 58.71 POC Glucometer Random Glucose 238 H Hemoglobin A1c % Calcium 9.3 Phosphorus Magnesium Total Bilirubin 0.3 AST 14 L ALT 12 L Alkaline Phosphatase 96 Total Protein 6.5 Albumin 3.5 Urine Color Urine Appearance Urine pH Ur Specific [place] Urine Protein Urine Glucose (UA) Urine Ketones Urine Blood Urine Nitrite Urine Bilirubin Urine Urobilinogen Ur Leukocyte Esterase 04/13/20 04/13/20 04/13/20 17:02 20:06 22:34 WBC RBC Hgb Hct MCV MCH MCHC RDW Plt Count MPV Absolute Neuts (auto) Neutrophils % Lymphocytes % Monocytes % Eosinophils % Basophils % Nucleated RBC % PT with INR INR PTT (Actin FS) Sodium Potassium Chloride Carbon Dioxide Anion Gap BUN Creatinine Est GFR (CKD-EPI)AfAm Est GFR (CKD-EPI)NonAf POC Glucometer 144 147 Random Glucose Hemoglobin A1c % Calcium Phosphorus Magnesium Total Bilirubin AST ALT Alkaline Phosphatase Total Protein Albumin Urine Color Yellow Urine Appearance Clear Urine pH 6.5 Ur Specific [place] 1.020 Urine Protein Negative Urine Glucose (UA) 3+ H Urine Ketones Negative Urine Blood Negative Urine Nitrite Negative Urine Bilirubin Negative Urine Urobilinogen 0.2 Ur Leukocyte Esterase Negative 04/14/20 04/14/20 04/14/20 06:16 07:36 07:36 WBC 5.8 RBC 3.91 Hgb 11.9 Hct 35.6 MCV 91.0 MCH 30.3 MCHC 33.3 RDW 13.3 Plt Count 184 MPV 8.9 Absolute Neuts (auto) Neutrophils % Lymphocytes % Monocytes % Eosinophils % Basophils % Nucleated RBC % PT with INR INR PTT (Actin FS) Sodium 143 Potassium 4.0 Chloride 109 H Carbon Dioxide 28 Anion Gap 5 L BUN 15.2 Creatinine 0.5 L Est GFR (CKD-EPI)AfAm 103.01 Est GFR (CKD-EPI)NonAf 88.88 POC Glucometer 120 Random Glucose 130 H Hemoglobin A1c % Calcium 8.6 Phosphorus 3.6 Magnesium 1.8 Total Bilirubin AST ALT Alkaline Phosphatase Total Protein Albumin Urine Color Urine Appearance Urine pH Ur Specific [place] Urine Protein Urine Glucose (UA) Urine Ketones Urine Blood Urine Nitrite Urine Bilirubin Urine Urobilinogen Ur Leukocyte Esterase 04/14/20 04/14/20 07:36 11:29 WBC RBC Hgb Hct MCV MCH MCHC RDW Plt Count MPV Absolute Neuts (auto) Neutrophils % Lymphocytes % Monocytes % Eosinophils % Basophils % Nucleated RBC % PT with INR INR PTT (Actin FS) Sodium Potassium Chloride Carbon Dioxide Anion Gap BUN Creatinine Est GFR (CKD-EPI)AfAm Est GFR (CKD-EPI)NonAf POC Glucometer 159 Random Glucose Hemoglobin A1c % 6.8 H Calcium Phosphorus Magnesium Total Bilirubin AST ALT Alkaline Phosphatase Total Protein Albumin Urine Color Urine Appearance Urine pH Ur Specific [place] Urine Protein Urine Glucose (UA) Urine Ketones Urine Blood Urine Nitrite Urine Bilirubin Urine Urobilinogen Ur Leukocyte Esterase Home Medications Medication Instructions Recorded Calcium Carb/Vit D3/Minerals 2 each PO DAILY tablet 11/01/12 [Calcium 600 + D Tablet] Atorvastatin Ca [Lipitor] 20 mg PO DAILY 05/03/19 Gabapentin 300 mg PO HS 05/03/19 Losartan Potassium [Cozaar -] 50 mg PO DAILY 05/03/19 Aspirin [ASA -] 81 mg PO DAILY 04/13/20 Irbesartan [Avapro (Nf) -] 150 mg PO DAILY 04/13/20 metFORMIN HCL [Metformin ER 500 mg PO BID 04/13/20 Osmotic] Current Medications Generic Name Dose Route Start Last Admin Trade Name Freq PRN Reason Stop Dose Admin Aspirin 81 mg 04/14/20 10:00 04/14/20 10:41 Asa - PO 81 mg DAILY PADMINI Administration Atorvastatin Calcium 20 mg 04/14/20 22:00 Lipitor - PO HS [facility] Bacitracin 1 applic 04/14/20 10:00 04/14/20 10:59 Bacitracin - TP 1 applic DAILY PADMINI Administration Enoxaparin Sodium 40 mg 04/13/20 18:30 04/14/20 10:46 Lovenox - SQ 40 mg DAILY PADMINI Administration Gabapentin 300 mg 04/13/20 22:00 04/13/20 22:35 Neurontin - PO 300 mg HS PADMINI Administration Piperacillin Sod/Tazobactam 50 mls @ 100 mls/hr 04/14/20 10:00 04/14/20 11:16 Sod 3.375 gm/ Dextrose IVPB 100 mls/hr Q8H-IV PADMINI Administration Protocol Insulin Aspart 1 vial 04/13/20 22:00 04/14/20 06:23 Novolog Vial Sliding Scale - SQ Not Given ACHS PADMINI Protocol Losartan Potassium 50 mg 04/14/20 10:00 04/14/20 10:46 Cozaar - PO 50 mg DAILY PADMINI Administration Metoprolol Succinate 12.5 mg 04/13/20 18:45 04/14/20 10:41 Toprol Xl - PO 12.5 mg DAILY PADMINI Administration ASSESSMENT AND PLAN: 85 F L anterior tibial infected ulcer HTN HLD Uncontrolled T2DM w/ hyperglycemia Vit D deficiency Plan: IV Zosyn/Vancomycin for L magallon ulcer follow blood cultures, wound culture Obtain LLE DVT study to r/o underlying clot Wound care, topical bacitracin, leg elevation Aggressive BG control with BID basal insulin supplemented by SS Send A1c/lipid panel/TSH ID evaluation Vascular evaluation DVT ppx: Lovenox SC
[2020-04-13 22:52] VITALS: BMI 22.8
[2020-04-14] MEDS ORDERED: DEXTROSE 5%-WATER - 50 ML IVPB ONE ×3 (01:43→16:32)
[2020-04-14] MEDS ORDERED: PIPERACILLIN/TAZOBACTAM 3.375 GM VIAL IVPB ONE ×3 (01:43→16:31)
[2020-04-14] MEDS ORDERED: PIPERACILLIN/TAZOB 3.375 GM 3.375 GM in DEXTROSE 5%-WATER - 50 ML IVPB SCH (02:00)
[2020-04-14] MEDS: INSULIN SLIDING SCALE (NOVOLOG) 1 VIAL SQ SCH ×4 (06:23→21:51)
[2020-04-14] MEDS ORDERED: INSULIN (NOVOLOG) ASPART 100 UNITS/ML 10ML VIAL ONE ×3 (07:44→21:04)
[2020-04-14 07:58] LABS: HEMATOCRIT 35.6 % (32.4-45.2); HEMOGLOBIN 11.9 GM/dL (10.7-15.3); MCH 30.3 pg (25.7-33.7); MCHC 33.3 g/dl (32.0-36.0); MEAN PLT VOLUME 8.9 fl (7.5-11.1); PLATELET COUNT 184 K/MM3 (134-434); RBC 3.91 M/mm3 (3.60-5.2); RDW 13.3 % (11.6-15.6); WHITE BLOOD COUNT 5.8 K/mm3 (4.0-10.0)
[2020-04-14 08:23] LABS: BLOOD UREA NITROGEN 15.2 mg/dL (7-18); CALCIUM 8.6 mg/dL (8.5-10.1); CREATININE 0.5 mg/dL (0.55-1.3); MAGNESIUM 1.8 mg/dL (1.8-2.4); PHOSPHOROUS 3.6 mg/dL (2.5-4.9)
--- NOTE | 2020-04-14 08:45 | CON.ID ---
Consult Consult Specialty:: infectious diseases Referred by:: Reason for Consultation:: left leg cellulitis/wound - History of Present Illness Chief Complaint: left leg cellulitis History of Present Illness: 85 year old F (Gibraltarian-speaking) with PMH HTN, HLD, CAD s/p CABG, DM, came for L leg wound infection. Pt stated that she had wound since 9 months ago after trauma to the L leg. The wound never healed properly over the course of this time. Pt noticed it becoming more red and expressing pus over the weekend. Pt d enied any trauma, changes in soap/detergent. Pt has tried bacitracin, hot compresses and liquid bandages without relief of her symptoms. Pt stated that the wound was throbbing most of the time. Denied fevers, chills, SOB, C/P, abd pain, N/V/D. currently feels better - History Source History Provided By: Patient, Medical Record Limitations to Obtaining History: Language Barrier - Past Medical History ...: No - Alcohol/Substance Use Hx Alcohol Use: No - Smoking History Smoking history: Never smoked Have you smoked in the past 12 months: No Aproximately how many cigarettes per day: 0 Home Medications - Allergies Allergies/Adverse Reactions: Allergies Allergy/AdvReac Type Severity Reaction Status Date / Time No Known Allergies Allergy Verified 04/13/20 14:09 - Home Medications Home Medications: Ambulatory Orders Calcium Carb/Vit D3/Minerals [Calcium 600 + D Tablet] 2 each PO DAILY tablet 11/01/12 Atorvastatin Ca [Lipitor] 20 mg PO DAILY 05/03/19 Gabapentin 300 mg PO HS 05/03/19 Losartan Potassium [Cozaar -] 50 mg PO DAILY 05/03/19 Aspirin [ASA -] 81 mg PO DAILY 04/13/20 Irbesartan [Avapro (Nf) -] 150 mg PO DAILY 04/13/20 metFORMIN HCL [Metformin ER Osmotic] 500 mg PO BID 04/13/20 Review of Systems - Review of Systems Constitutional: reports: No Symptoms Eyes: reports: No Symptoms HENT: reports: No Symptoms Neck: reports: No Symptoms Cardiovascular: reports: No Symptoms Respiratory: reports: No Symptoms Gastrointestinal: reports: No Symptoms Genitourinary: reports: No Symptoms Musculoskeletal: reports: Other Integumentary: reports: Erythema, Wound Neurological: reports: No Symptoms Endocrine: reports: No Symptoms Hematology/Lymphatic: reports: No Symptoms Psychiatric: reports: No Symptoms Physical Exam Vital Signs: Vital Signs Temperature 97.5 F L 04/14/20 06:43 Pulse Rate 52 L 04/14/20 06:43 Respiratory Rate 04/14/20 06:43 Blood Pressure 156/76 04/14/20 06:43 O2 Sat by Pulse Oximetry (%) 99 04/14/20 06:43 Constitutional: Yes: Well Nourished, Calm, Mild Distress Eyes: Yes: Conjunctiva Clear HENT: Yes: Atraumatic, Normocephalic Neck: Yes: Supple, Trachea Midline Cardiovascular: Yes: Regular Rate and Rhythm Respiratory: Yes: Regular, CTA Bilaterally Gastrointestinal: Yes: Normal Bowel Sounds, Soft Musculoskeletal: Yes: WNL Extremities: Yes: Erythema (left leg ulcer and wound with surrounding erythema), Other Integumentary: Yes: Erythema, Other Wound/Incision: Yes: Dressing Removed, Other Neurological: Yes: Alert, Oriented Psychiatric: Yes: Alert, Oriented Labs: CBC, BMP 04/14/20 07:36 04/14/20 07:36 Imaging - Results X-ray: Report Reviewed, Image Reviewed Assessment/Plan 85 year old F (Gibraltarian-speaking) with PMH HTN, HLD, CAD s/p CABG, DM, presented to ED for L leg wound infection. She is admitted for possible diabetic ulcer w ith surrounding cellulitis of LLE. ulcer of the left leg cellulitis of the left leg htn hld dm plan will stop vanco continue zosyn wound care to get involved and vascular will d/w the team
[2020-04-14] MEDS ORDERED: MAGNESIUM 2GM/50ML STERILE WATER IVPB IVPB ONE (10:00)
[2020-04-14] MEDS ORDERED: VANCOMYCIN 1 GM in D5W (PRE-DOCKED) 1,000 MG/250 ML IVPB SCH (10:00)
[2020-04-14] MEDS: metoPROLOL SUCCINATE 25 MG TAB.SR.24H (FP) PO SCH (10:41)
[2020-04-14] MEDS: ASPIRIN 81 MG CHEWABLE TABLETS PO SCH (10:41)
[2020-04-14] MEDS: ENOXAPARIN NA (PORCINE) 40 MG/0.4 ML DISP.SYRIN SQ SCH (10:46)
[2020-04-14] MEDS: LOSARTAN POTASSIUM 50 MG TABLET PO SCH (10:46)
[2020-04-14] MEDS: BACITRACIN 15 GM TUBE TOPICAL OINTMENT TP SCH (10:59)
--- NOTE | 2020-04-14 11:04 | EKG ---
Test Reason : Blood Pressure : / mmHG Vent. Rate : 069 BPM Atrial Rate : 069 BPM P-R Int : 198 ms QRS Dur : 086 ms QT Int : 400 ms P-R-T Axes : 064 048 052 degrees QTc Int : 428 ms NORMAL SINUS RHYTHM NONSPECIFIC ST ABNORMALITY ABNORMAL ECG WHEN COMPARED WITH ECG OF 03-MAY-2019 17:54, NO SIGNIFICANT CHANGE WAS FOUND Confirmed by MD Arron, Rolando ([id number]) on 04/14/2020 11:04:12 AM Referred By: Confirmed By:Rolando Heller MD
[2020-04-14] MEDS: PIPERACILLIN/TAZOB 3.375 GM 3.375 GM in DEXTROSE 5%-WATER - 50 ML IVPB SCH ×2 (11:16→17:54)
--- NOTE | 2020-04-14 11:27 | CONSULT ---
- Consultation REQUESTING PROVIDER: CONSULT REQUEST: We have been asked to surgically evaluate this patient for LLE wound Hospitalist:Ralph Thompson MD HISTORY OF PRESENT ILLNESS: 85yo F was admitted for cellulitis of her LLE wound. Pt states wound has been present for about 9 months after trauma. Pt denies h/o vascular disease or smoking. Pt states that a couple days ago the area got red and started draining foul smelling liquid so she went to the ED. Pt states she has DM that is well controlled. Pt denies h/o of leg swelling. PMHx: HTN, HLD, DM Home Medications Medication Instructions Recorded Calcium Carb/Vit D3/Minerals 2 each PO DAILY tablet 11/01/12 [Calcium 600 + D Tablet] Atorvastatin Ca [Lipitor] 20 mg PO DAILY 05/03/19 Gabapentin 300 mg PO HS 05/03/19 Losartan Potassium [Cozaar -] 50 mg PO DAILY 05/03/19 Aspirin [ASA -] 81 mg PO DAILY 04/13/20 Irbesartan [Avapro (Nf) -] 150 mg PO DAILY 04/13/20 metFORMIN HCL [Metformin ER 500 mg PO BID 04/13/20 Osmotic] Allergies Allergy/AdvReac Type Severity Reaction Status Date / Time No Known Allergies Allergy Verified 04/13/20 14:09 PHYSICAL EXAM: GENERAL: Awake, alert, and fully oriented, in no acute distress. HEAD: Normal with no signs of trauma. EYES: PERRL, sclera anicteric, conjunctiva clear. NECK: Normal ROM, supple without lymphadenopathy, JVD, or masses. LUNGS: breathing comfortably, No accessory muscle use. HEART: Regular rate and rhythm. MUSCULOSKELETAL: Normal ROM at all joints. No bony deformities or tenderness. No CVA tenderness. UPPER EXTREMITIES: 2+ pulses, warm, well-perfused. No cyanosis. No peripheral edema. LOWER EXTREMITIES: 2+ pulses, warm, well-perfused. No calf tenderness. No peripheral edema. LLE shows 3cm x 3cm wound on anterior magallon with purulent drainage and surrounding cellulitis. NEUROLOGICAL: Normal speech, gait not observed. PSYCH: Cooperative. Good eye contact. Appropriate mood and affect. SKIN: Warm, dry, normal turgor, no rashes or lesions noted. Vital Signs Temperature 97.5 F L 04/14/20 06:43 Pulse Rate 52 L 04/14/20 06:43 Respiratory Rate 20 30/20 06:43 Blood Pressure 156/76 04/14/20 06:43 O2 Sat by Pulse Oximetry (%) 99 04/14/20 06:43 Lab Results WBC 5.8 K/mm3 (4.0-10.0) 04/14/20 07:36 RBC 3.91 M/mm3 (3.60-5.2) 04/14/20 07:36 Hgb 11.9 GM/dL (10.7-15.3) 04/14/20 07:36 Hct 35.6 % (32.4-45.2) 04/14/20 07:36 MCV 91.0 fl (80-96) 04/14/20 07:36 MCHC 33.3 g/dl (32.0-36.0) 04/14/20 07:36 RDW 13.3 % (11.6-15.6) 04/14/20 07:36 Plt Count 184 K/MM3 (134-434) 04/14/20 07:36 INR 1.03 (0.83-1.09) 04/13/20 15:20 Sodium 143 mmol/L (136-145) 04/14/20 07:36 Potassium 4.0 mmol/L (3.5-5.1) 04/14/20 07:36 Chloride 109 mmol/L (98-107) H 04/14/20 07:36 Carbon Dioxide 28 mmol/L (21-32) 04/14/20 07:36 Anion Gap 5 MMOL/L (8-16) L 04/14/20 07:36 BUN 15.2 mg/dL (7-18) 04/14/20 07:36 Creatinine 0.5 mg/dL (0.55-1.3) L 04/14/20 07:36 Random Glucose 130 mg/dL (74-106) H 04/14/20 07:36 Calcium 8.6 mg/dL (8.5-10.1) 04/14/20 07:36 Problem List - Problems (1) Cellulitis of leg, left Assessment/Plan: Cellulitis Plan -Continue antibiotics per ID/medical team -Elevate the lower extremity above the level of the heart at all times while at rest -Bilateral compression with mary wraps once cellulitis has receded (wrap from metacarpal heads to below knee) -[place] soaks QD (astringent for pruritus) -Apply Lac hydrin daily (for dry scaly skin) Code(s): L03.116 - CELLULITIS OF LEFT LOWER LIMB
--- NOTE | 2020-04-14 13:19 | PN ---
Teaching Attending Note Name of Resident: Miriam Galo ATTENDING PHYSICIAN STATEMENT I saw and evaluated the patient. I reviewed the resident's note and discussed the case with the resident. I agree with the resident's findings and plan as documented. SUBJECTIVE: Patient says she has significant improvement in pain in her left leg. OBJECTIVE: Vital Signs Period Temp Pulse Resp BP Sys/Potter Pulse Ox Last 24 Hr 97.5 F-98.6 F 52-94 16-20 140-191/76-88 94-100 HEART: S1S2, RRR LUNGS: Clear ABDOMEN: Soft, non-tender, non-distended, normal BS EXTREMITIES: No edema. 2cm x 3cm wound on left magallon with dark yellow discharge and surrounding erythema Laboratory Results - last 24 hr 04/13/20 04/13/20 04/13/20 15:20 15:20 15:20 WBC 6.5 RBC 3.98 Hgb 12.0 Hct 36.3 MCV 91.3 MCH 30.2 MCHC 33.1 RDW 13.2 Plt Count 203 MPV 9.2 Absolute Neuts (auto) 5.0 Neutrophils % 77.1 Lymphocytes % 15.1 Monocytes % 7.0 Eosinophils % 0.2 Basophils % 0.6 Nucleated RBC % 0 PT with INR 12.10 INR 1.03 PTT (Actin FS) 31.8 Sodium 140 Potassium 4.3 Chloride 106 Carbon Dioxide 31 Anion Gap 3 L BUN 20.3 H Creatinine 0.9 Est GFR (CKD-EPI)AfAm 68.05 Est GFR (CKD-EPI)NonAf 58.71 POC Glucometer Random Glucose 238 H Hemoglobin A1c % Calcium 9.3 Phosphorus Magnesium Total Bilirubin 0.3 AST 14 L ALT 12 L Alkaline Phosphatase 96 Total Protein 6.5 Albumin 3.5 Urine Color Urine Appearance Urine pH Ur Specific [place] Urine Protein Urine Glucose (UA) Urine Ketones Urine Blood Urine Nitrite Urine Bilirubin Urine Urobilinogen Ur Leukocyte Esterase 04/13/20 04/13/20 04/13/20 17:02 20:06 22:34 WBC RBC Hgb Hct MCV MCH MCHC RDW Plt Count MPV Absolute Neuts (auto) Neutrophils % Lymphocytes % Monocytes % Eosinophils % Basophils % Nucleated RBC % PT with INR INR PTT (Actin FS) Sodium Potassium Chloride Carbon Dioxide Anion Gap BUN Creatinine Est GFR (CKD-EPI)AfAm Est GFR (CKD-EPI)NonAf POC Glucometer 144 147 Random Glucose Hemoglobin A1c % Calcium Phosphorus Magnesium Total Bilirubin AST ALT Alkaline Phosphatase Total Protein Albumin Urine Color Yellow Urine Appearance Clear Urine pH 6.5 Ur Specific [place] 1.020 Urine Protein Negative Urine Glucose (UA) 3+ H Urine Ketones Negative Urine Blood Negative Urine Nitrite Negative Urine Bilirubin Negative Urine Urobilinogen 0.2 Ur Leukocyte Esterase Negative 04/14/20 04/14/20 04/14/20 06:16 07:36 07:36 WBC 5.8 RBC 3.91 Hgb 11.9 Hct 35.6 MCV 91.0 MCH 30.3 MCHC 33.3 RDW 13.3 Plt Count 184 MPV 8.9 Absolute Neuts (auto) Neutrophils % Lymphocytes % Monocytes % Eosinophils % Basophils % Nucleated RBC % PT with INR INR PTT (Actin FS) Sodium 143 Potassium 4.0 Chloride 109 H Carbon Dioxide 28 Anion Gap 5 L BUN 15.2 Creatinine 0.5 L Est GFR (CKD-EPI)AfAm 103.01 Est GFR (CKD-EPI)NonAf 88.88 POC Glucometer 120 Random Glucose 130 H Hemoglobin A1c % Calcium 8.6 Phosphorus 3.6 Magnesium 1.8 Total Bilirubin AST ALT Alkaline Phosphatase Total Protein Albumin Urine Color Urine Appearance Urine pH Ur Specific [place] Urine Protein Urine Glucose (UA) Urine Ketones Urine Blood Urine Nitrite Urine Bilirubin Urine Urobilinogen Ur Leukocyte Esterase 04/14/20 04/14/20 07:36 11:29 WBC RBC Hgb Hct MCV MCH MCHC RDW Plt Count MPV Absolute Neuts (auto) Neutrophils % Lymphocytes % Monocytes % Eosinophils % Basophils % Nucleated RBC % PT with INR INR PTT (Actin FS) Sodium Potassium Chloride Carbon Dioxide Anion Gap BUN Creatinine Est GFR (CKD-EPI)AfAm Est GFR (CKD-EPI)NonAf POC Glucometer 159 Random Glucose Hemoglobin A1c % 6.8 H Calcium Phosphorus Magnesium Total Bilirubin AST ALT Alkaline Phosphatase Total Protein Albumin Urine Color Urine Appearance Urine pH Ur Specific [place] Urine Protein Urine Glucose (UA) Urine Ketones Urine Blood Urine Nitrite Urine Bilirubin Urine Urobilinogen Ur Leukocyte Esterase Current Medications Generic Name Dose Route Start Last Admin Trade Name Freq PRN Reason Stop Dose Admin Aspirin 81 mg 04/14/20 10:00 04/14/20 10:41 Asa - PO 81 mg DAILY [facility] Administration Atorvastatin Calcium 20 mg 04/14/20 22:00 Lipitor - PO HS [facility] Bacitracin 1 applic 04/14/20 10:00 04/14/20 10:59 Bacitracin - TP 1 applic DAILY [facility] Administration Enoxaparin Sodium 40 mg 04/13/20 18:30 04/14/20 10:46 Lovenox - SQ 40 mg DAILY [facility] Administration Gabapentin 300 mg 04/13/20 22:00 04/13/20 22:35 Neurontin - PO 300 mg HS [facility] Administration Piperacillin Sod/Tazobactam 50 mls @ 100 mls/hr 04/14/20 10:00 04/14/20 11:16 Sod 3.375 gm/ Dextrose IVPB 100 mls/hr Q8H-IV [facility] Administration Protocol Insulin Aspart 1 vial 04/13/20 22:00 04/14/20 12:23 Novolog Vial Sliding Scale - SQ 2 units ACHS [facility] Administration Protocol Losartan Potassium 50 mg 04/14/20 10:00 04/14/20 10:46 Cozaar - PO 50 mg DAILY [facility] Administration Metoprolol Succinate 12.5 mg 04/13/20 18:45 04/14/20 10:41 Toprol Xl - PO 12.5 mg DAILY [facility] Administration ASSESSMENT AND PLAN: This is an 85 year old woman with a history of HTN, hyperlipidemia, CAD, CABG, type 2 DM who presented to the ED with pain and foul-smelling drainage from a left leg wound. 1. Infected ulcer with cellulitis of left leg - Continue Zosyn - Vancomycin discontinued - Wound care - Follow-up wound culture 2. 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
--- NOTE | 2020-04-14 13:57 | PN ---
Physical Exam: SUBJECTIVE: Patient seen and examined. Pt stated that she is not in pain at this time. Pt stated she feels well and slept well overnight. OBJECTIVE: Vital Signs Period Temp Pulse Resp BP Sys/Potter Pulse Ox Last 24 Hr 97.5 F-98.6 F 52-94 16-20 140-191/76-88 94-100 GENERAL: Awake, alert, and fully oriented, in no acute distress. HEENT: NCAT, EOMI, moist mucus membranes LUNGS: CTA b/l, no wheezes HEART: Regular rate and rhythm, normal S1 and S2 without murmur ABDOMEN: Soft, nontender, not distended, normoactive bowel sounds EXTREMITIES: LLE with steph wrap. Dressings clean, dry and intact. Region of lesion tender to palpation. SKIN: Warm, dry. Laboratory Last Values WBC 5.8 K/mm3 (4.0-10.0) 04/14/20 07:36 RBC 3.91 M/mm3 (3.60-5.2) 04/14/20 07:36 Hgb 11.9 GM/dL (10.7-15.3) 04/14/20 07:36 Hct 35.6 % (32.4-45.2) 04/14/20 07:36 MCV 91.0 fl (80-96) 04/14/20 07:36 MCH 30.3 pg (25.7-33.7) 04/14/20 07:36 MCHC 33.3 g/dl (32.0-36.0) 04/14/20 07:36 RDW 13.3 % (11.6-15.6) 04/14/20 07:36 Plt Count 184 K/MM3 (134-434) 04/14/20 07:36 MPV 8.9 fl (7.5-11.1) 04/14/20 07:36 Absolute Neuts (auto) 5.0 K/mm3 (1.5-8.0) 04/13/20 15:20 Neutrophils % 77.1 % (42.8-82.8) 04/13/20 15:20 Lymphocytes % 15.1 % (8-40) 04/13/20 15:20 Monocytes % 7.0 % (3.8-10.2) 04/13/20 15:20 Eosinophils % 0.2 % (0-4.5) 04/13/20 15:20 Basophils % 0.6 % (0-2.0) 04/13/20 15:20 Nucleated RBC % 0 % (0-0) 04/13/20 15:20 PT with INR 12.10 SEC (9.7-13.0) 04/13/20 15:20 INR 1.03 (0.83-1.09) 04/13/20 15:20 PTT (Actin FS) 31.8 SECONDS (25.2-36.5) 04/13/20 15:20 Sodium 143 mmol/L (136-145) 04/14/20 07:36 Potassium 4.0 mmol/L (3.5-5.1) 04/14/20 07:36 Chloride 109 mmol/L (98-107) H 04/14/20 07:36 Carbon Dioxide 28 mmol/L (21-32) 04/14/20 07:36 Anion Gap 5 MMOL/L (8-16) L 04/14/20 07:36 BUN 15.2 mg/dL (7-18) 04/14/20 07:36 Creatinine 0.5 mg/dL (0.55-1.3) L 04/14/20 07:36 Est GFR (CKD-EPI)AfAm 103.01 04/14/20 07:36 Est GFR (CKD-EPI)NonAf 88.88 04/14/20 07:36 POC Glucometer 159 UNITS (80-120) 04/14/20 11:29 Random Glucose 130 mg/dL (74-106) H 04/14/20 07:36 Hemoglobin A1c % 6.8 % (4.2-6.3) H 04/14/20 07:36 Calcium 8.6 mg/dL (8.5-10.1) 04/14/20 07:36 Phosphorus 3.6 mg/dL (2.5-4.9) 04/14/20 07:36 Magnesium 1.8 mg/dL (1.8-2.4) 04/14/20 07:36 Total Bilirubin 0.3 mg/dL (0.2-1) 04/13/20 15:20 AST 14 U/L (15-37) L 04/13/20 15:20 ALT 12 U/L (13-61) L 04/13/20 15:20 Alkaline Phosphatase 96 U/L (45-117) 04/13/20 15:20 Total Protein 6.5 g/dl (6.4-8.2) 04/13/20 15:20 Albumin 3.5 g/dl (3.4-5.0) 04/13/20 15:20 Urine Color Yellow 04/13/20 17:02 Urine Appearance Clear 04/13/20 17:02 Urine pH 6.5 (5.0-8.0) 04/13/20 17:02 Ur Specific [place] 1.020 (1.010-1.035) 04/13/20 17:02 Urine Protein Negative (NEGATIVE) 04/13/20 17:02 Urine Glucose (UA) 3+ (NEGATIVE) H 04/13/20 17:02 Urine Ketones Negative (NEGATIVE) 04/13/20 17:02 Urine Blood Negative (NEGATIVE) 04/13/20 17:02 Urine Nitrite Negative (NEGATIVE) 04/13/20 17:02 Urine Bilirubin Negative (NEGATIVE) 04/13/20 17:02 Urine Urobilinogen 0.2 mg/dL (0.2-1.0) 04/13/20 17:02 Ur Leukocyte Esterase Negative (NEGATIVE) 04/13/20 17:02 Active Medications Aspirin (Asa -) 81 mg PO DAILY [facility] Last Admin: 04/14/20 10:41 Dose: 81 mg Documented by: Atorvastatin Calcium (Lipitor -) 20 mg PO [facility] Bacitracin (Bacitracin -) 1 applic TP DAILY [facility] Last Admin: 04/14/20 10:59 Dose: 1 applic Documented by: Enoxaparin Sodium (Lovenox -) 40 mg SQ DAILY [facility] Last Admin: 04/14/20 10:46 Dose: 40 mg Documented by: Gabapentin (Neurontin -) 300 mg PO [facility] Last Admin: 04/13/20 22:35 Dose: 300 mg Documented by: Piperacillin Sod/Tazobactam (Sod 3.375 gm/ Dextrose) 50 mls @ 100 mls/hr IVPB Q8H-IV [facility]; Protocol Last Admin: 04/14/20 11:16 Dose: 100 mls/hr Documented by: Insulin Aspart (Novolog Vial Sliding Scale -) 1 vial SQ ACHS [facility]; Protocol Last Admin: 04/14/20 12:23 Dose: 2 units Documented by: Losartan Potassium (Cozaar -) 50 mg PO DAILY [facility] Last Admin: 04/14/20 10:46 Dose: 50 mg Documented by: Metoprolol Succinate (Toprol Xl -) 12.5 mg PO DAILY [facility] Last Admin: 04/14/20 10:41 Dose: 12.5 mg Documented by: ASSESSMENT/PLAN: 85 year old F (Setswana-speaking) with PMH HTN, HLD, CAD s/p CABG, DM, presented to ED for L leg wound infection. She is admitted for possible diabetic ulcer with surrounding cellulitis of LLE. Ulcer and cellulitis -Tib/fib xray of LLE reviewed. No sign soft tissue ulcer. No acute fx. Positive for loss of bone density, mild arthritic changes, chronic vascular calcifications. - ID and Vascular consulted. -will d/c Vancomycin 1g qD -c/w Zosyn 3.375 q8H (04/14) Today is day 1. -c/w gabapentin 300 qHS -Wound culture grew lactose fermenting and non-lactose fermenting GNB. -LLE duplex negative for DVT -will c/w leg elevation, compression with STEPH wrap, [place] soaks qD, lac hydrin qD -c/w bacitracin HTN, HLD, CAD s/p CABG - c/w ASA 81mg, losartan 50mg qD, atorvastatin 20mg qD, metoprolol 12.5mg qD - monitor BP DM -ISS and BGM ACHS -HbA1c 6.8 -held home metformin Ppx -DVT: lovenox FEN -no standing fluids -replete lytes as needed -sodium/diabetic diet Dispo: continue to monitor in med/surg Visit type - Emergency Visit Emergency Visit: Yes ED Registration Date: 04/13/20 Care time: The patient presented to the Emergency Department on the above date and was hospitalized for further evaluation of their emergent condition. - New Patient This patient is new to me today: No - Critical Care Critical Care patient: No - Medication Review Med list reviewed for High Risk Meds patients 65 and older: Yes ATTENDING PHYSICIAN STATEMENT I saw and evaluated the patient. I reviewed the resident's note and discussed the case with the resident. I agree with the resident's findings and plan as documented. SUBJECTIVE: OBJECTIVE: ASSESSMENT AND PLAN:
[2020-04-14] MEDS: ATORVASTATIN CA 20 MG TABLET (FP) PO SCH (21:51)
[2020-04-14] MEDS: GABAPENTIN 300 MG CAPSULE PO SCH (21:51)
[2020-04-15] MEDS ORDERED: PIPERACILLIN/TAZOBACTAM 3.375 GM VIAL IVPB ONE ×3 (01:19→16:52)
[2020-04-15] MEDS ORDERED: DEXTROSE 5%-WATER - 50 ML IVPB ONE ×3 (01:19→16:52)
[2020-04-15] MEDS: PIPERACILLIN/TAZOB 3.375 GM 3.375 GM in DEXTROSE 5%-WATER - 50 ML IVPB SCH ×3 (01:26→18:08)
[2020-04-15] MEDS: INSULIN SLIDING SCALE (NOVOLOG) 1 VIAL SQ SCH ×4 (06:07→21:52)
[2020-04-15] MEDS ORDERED: INSULIN (NOVOLOG) ASPART 100 UNITS/ML 10ML VIAL ONE (07:03)
[2020-04-15 07:39] LABS: POTASSIUM 4.5 mmol/L (3.5-5.1)
--- NOTE | 2020-04-15 07:57 | PN ---
Progress Note, Physician History of Present Illness: stable no new issues - Current Medication List Current Medications: Active Medications Aspirin (Asa -) 81 mg PO DAILY [facility] Last Admin: 04/14/20 10:41 Dose: 81 mg Documented by: Atorvastatin Calcium (Lipitor -) 20 mg PO [facility] Last Admin: 04/14/20 21:51 Dose: 20 mg Documented by: Bacitracin (Bacitracin -) 1 applic TP DAILY [facility] Last Admin: 04/14/20 10:59 Dose: 1 applic Documented by: Enoxaparin Sodium (Lovenox -) 40 mg SQ DAILY [facility] Last Admin: 04/14/20 10:46 Dose: 40 mg Documented by: Gabapentin (Neurontin -) 300 mg PO [facility] Last Admin: 04/14/20 21:51 Dose: 300 mg Documented by: Piperacillin Sod/Tazobactam (Sod 3.375 gm/ Dextrose) 50 mls @ 100 mls/hr IVPB Q8H-IV [facility]; Protocol Last Admin: 04/15/20 01:26 Dose: 100 mls/hr Documented by: Insulin Aspart (Novolog Vial Sliding Scale -) 1 vial SQ [facility]; Protocol Last Admin: 04/15/20 06:07 Dose: Not Given Documented by: Losartan Potassium (Cozaar -) 50 mg PO DAILY [facility] Last Admin: 04/14/20 10:46 Dose: 50 mg Documented by: Metoprolol Succinate (Toprol Xl -) 12.5 mg PO DAILY [facility] Last Admin: 04/14/20 10:41 Dose: 12.5 mg Documented by: - Objective Vital Signs: Vital Signs Temperature 98.3 F 04/14/20 22:01 Pulse Rate 51 L 04/15/20 06:00 Respiratory Rate 20 04/15/20 06:00 Blood Pressure 145/83 04/15/20 06:00 O2 Sat by Pulse Oximetry (%) 96 04/14/20 20:31 Constitutional: Yes: No Distress, Calm Cardiovascular: Yes: S1, S2 Respiratory: Yes: Regular, CTA Bilaterally Gastrointestinal: Yes: Normal Bowel Sounds, Soft Musculoskeletal: Yes: WNL Extremities: Yes: WNL Neurological: Yes: Alert, Oriented Psychiatric: Yes: Alert, Oriented Labs: CBC, BMP 04/14/20 07:36 04/15/20 06:46 INR, PTT INR 1.03 (0.83-1.09) 04/13/20 15:20 Assessment/Plan 85 year old F (Lebanese-speaking) with PMH HTN, HLD, CAD s/p CABG, DM, presented to ED for L leg wound infection. She is admitted for possible diabetic ulcer with surrounding cellulitis of LLE. ulcer of the left leg cellulitis of the left leg htn hld dm pneumonia plan continue zosyn rest as per the team patient sputum is pocitive await for identification of the organism
[2020-04-15 08:01] LABS: BLOOD UREA NITROGEN 13.6 mg/dL (7-18); CALCIUM 9.2 mg/dL (8.5-10.1); CREATININE 0.6 mg/dL (0.55-1.3)
[2020-04-15] MEDS: ASPIRIN 81 MG CHEWABLE TABLETS PO SCH (10:43)
[2020-04-15] MEDS: ENOXAPARIN NA (PORCINE) 40 MG/0.4 ML DISP.SYRIN SQ SCH (10:43)
[2020-04-15] MEDS: BACITRACIN 15 GM TUBE TOPICAL OINTMENT TP SCH (10:44)
[2020-04-15] MEDS: LOSARTAN POTASSIUM 50 MG TABLET PO SCH (10:44)
[2020-04-15] MEDS: metoPROLOL SUCCINATE 25 MG TAB.SR.24H (FP) PO SCH (10:44)
--- NOTE | 2020-04-15 12:32 | PN ---
Physical Exam: SUBJECTIVE: Patient seen and examined. Stated that she has some pain at the site of her ulcer. Also complained of some dizziness and constipation. OBJECTIVE: Vital Signs Period Temp Pulse Resp BP Sys/[place]ter Pulse Ox Last 24 Hr 97.5 F-98.3 F 51-56 20-20 116-148/58-83 93-96 GENERAL: Awake, alert, and fully oriented, in no acute distress. HEENT: NCAT, EOMI, moist mucus membranes LUNGS: CTA b/l, no wheezes HEART: Regular rate and rhythm, normal S1 and S2 without murmur ABDOMEN: Soft, nontender, not distended, normoactive bowel sounds EXTREMITIES: Warm, well-perfused. SKIN: Warm, dry. LLE ulcer dry, decreased purulent drainage. Laboratory Last Values WBC 5.8 K/mm3 (4.0-10.0) 04/14/20 07:36 RBC 3.91 M/mm3 (3.60-5.2) 04/14/20 07:36 Hgb 11.9 GM/dL (10.7-15.3) 04/14/20 07:36 Hct 35.6 % (32.4-45.2) 04/14/20 07:36 MCV 91.0 fl (80-96) 04/14/20 07:36 MCH 30.3 pg (25.7-33.7) 04/14/20 07:36 MCHC 33.3 g/dl (32.0-36.0) 04/14/20 07:36 RDW 13.3 % (11.6-15.6) 04/14/20 07:36 Plt Count 184 K/MM3 (134-434) 04/14/20 07:36 MPV 8.9 fl (7.5-11.1) 04/14/20 07:36 Absolute Neuts (auto) 5.0 K/mm3 (1.5-8.0) 04/13/20 15:20 Neutrophils % 77.1 % (42.8-82.8) 04/13/20 15:20 Lymphocytes % 15.1 % (8-40) 04/13/20 15:20 Monocytes % 7.0 % (3.8-10.2) 04/13/20 15:20 Eosinophils % 0.2 % (0-4.5) 04/13/20 15:20 Basophils % 0.6 % (0-2.0) 04/13/20 15:20 Nucleated RBC % 0 % (0-0) 04/13/20 15:20 PT with INR 12.10 SEC (9.7-13.0) 04/13/20 15:20 INR 1.03 (0.83-1.09) 04/13/20 15:20 PTT (Actin FS) 31.8 SECONDS (25.2-36.5) 04/13/20 15:20 Sodium 139 mmol/L (136-145) 04/15/20 06:46 Potassium 4.5 mmol/L (3.5-5.1) 04/15/20 06:46 Chloride 106 mmol/L (98-107) 04/15/20 06:46 Carbon Dioxide 27 mmol/L (21-32) 04/15/20 06:46 Anion Gap 6 MMOL/L (8-16) L 04/15/20 06:46 BUN 13.6 mg/dL (7-18) 04/15/20 06:46 Creatinine 0.6 mg/dL (0.55-1.3) 04/15/20 06:46 Est GFR (CKD-EPI)AfAm 97.01 04/15/20 06:46 Est GFR (CKD-EPI)NonAf 83.70 04/15/20 06:46 POC Glucometer 128 UNITS (80-120) 04/15/20 06:06 Random Glucose 144 mg/dL (74-106) H 04/15/20 06:46 Hemoglobin A1c % 6.8 % (4.2-6.3) H 04/14/20 07:36 Calcium 9.2 mg/dL (8.5-10.1) 04/15/20 06:46 Phosphorus 3.6 mg/dL (2.5-4.9) 04/14/20 07:36 Magnesium 1.8 mg/dL (1.8-2.4) 04/14/20 07:36 Total Bilirubin 0.3 mg/dL (0.2-1) 04/13/20 15:20 AST 14 U/L (15-37) L 04/13/20 15:20 ALT 12 U/L (13-61) L 04/13/20 15:20 Alkaline Phosphatase 96 U/L (45-117) 04/13/20 15:20 Total Protein 6.5 g/dl (6.4-8.2) 04/13/20 15:20 Albumin 3.5 g/dl (3.4-5.0) 04/13/20 15:20 Triglycerides 107 mg/dL (0-150) 04/15/20 06:46 Cholesterol 153 mg/dL (50-200) 04/15/20 06:46 Total LDL Cholesterol 84 mg/dL (5-100) 04/15/20 06:46 HDL Cholesterol 64 mg/dL (40-60) H 04/15/20 06:46 TSH 2.25 uIU/ml (0.358-3.74) 04/15/20 06:46 Urine Color Yellow 04/13/20 17:02 Urine Appearance Clear 04/13/20 17:02 Urine pH 6.5 (5.0-8.0) 04/13/20 17:02 Ur Specific [place] 1.020 (1.010-1.035) 04/13/20 17:02 Urine Protein Negative (NEGATIVE) 04/13/20 17:02 Urine Glucose (UA) 3+ (NEGATIVE) H 04/13/20 17:02 Urine Ketones Negative (NEGATIVE) 04/13/20 17:02 Urine Blood Negative (NEGATIVE) 04/13/20 17:02 Urine Nitrite Negative (NEGATIVE) 04/13/20 17:02 Urine Bilirubin Negative (NEGATIVE) 04/13/20 17:02 Urine Urobilinogen 0.2 mg/dL (0.2-1.0) 04/13/20 17:02 Ur Leukocyte Esterase Negative (NEGATIVE) 04/13/20 17:02 COVID-19 ([facility]) Not detected (Not Detected) 04/13/20 13:02 Active Medications Aluminum Sulfate/Calcium Acetate ([place] -) 1.9 gm TP DAILY [facility] Aspirin (Asa -) 81 mg PO DAILY [facility] Last Admin: 04/15/20 10:43 Dose: 81 mg Documented by: Atorvastatin Calcium (Lipitor -) 20 mg PO HS [facility] Last Admin: 04/14/20 21:51 Dose: 20 mg Documented by: Bacitracin (Bacitracin -) 1 applic TP DAILY [facility] Last Admin: 04/15/20 10:44 Dose: 1 applic Documented by: Enoxaparin Sodium (Lovenox -) 40 mg SQ DAILY [facility] Last Admin: 04/15/20 10:43 Dose: 40 mg Documented by: Gabapentin (Neurontin -) 300 mg PO HS [facility] Last Admin: 04/14/20 21:51 Dose: 300 mg Documented by: Piperacillin Sod/Tazobactam (Sod 3.375 gm/ Dextrose) 50 mls @ 100 mls/hr IVPB Q8H-IV [facility]; Protocol Last Admin: 04/15/20 10:43 Dose: 100 mls/hr Documented by: Insulin Aspart (Novolog Vial Sliding Scale -) 1 vial SQ [facility]; Protocol Last Admin: 04/15/20 06:07 Dose: Not Given Documented by: Losartan Potassium (Cozaar -) 50 mg PO DAILY [facility] Last Admin: 04/15/20 10:44 Dose: 50 mg Documented by: Metoprolol Succinate (Toprol Xl -) 12.5 mg PO DAILY [facility] Last Admin: 04/15/20 10:44 Dose: 12.5 mg Documented by: ASSESSMENT/PLAN: 85 year old F ([place] Islander-speaking) with PMH HTN, HLD, CAD s/p CABG, DM, presented to ED for L leg wound infection. She is admitted for possible diabetic ulcer with surrounding cellulitis of LLE. Ulcer and cellulitis -Tib/fib xray of LLE reviewed. No sign soft tissue ulcer. No acute fx. Positive for loss of bone density, mild arthritic changes, chronic vascular calcifications. - ID and Vascular consulted. -c/w Zosyn 3.375 q8H (04/14) Today is day 2. -c/w gabapentin 300 qHS -Wound culture grew lactose fermenting GNB and enterobacter gergoviae. -LLE duplex negative for DVT -will c/w leg elevation, bacitracin, [place] soaks qD. When changing dressing, put non-adhesive pad on top of wound before dressing with gauze to prevent sticking. Constipation -c/w miralax 17g qD HTN, HLD, CAD s/p CABG - c/w ASA 81mg, losartan 50mg qD, atorvastatin 20mg qD, metoprolol 12.5mg qD - monitor BP DM -ISS and BGM ACHS -HbA1c 6.8 -held home metformin Ppx -DVT: lovenox FEN -no standing fluids -replete lytes as needed -sodium/diabetic diet Dispo: continue to monitor in med/surg Visit type - Emergency Visit Emergency Visit: Yes ED Registration Date: 04/13/20 Care time: The patient presented to the Emergency Department on the above date and was hospitalized for further evaluation of their emergent condition. - New Patient This patient is new to me today: No - Critical Care Critical Care patient: No - Medication Review Med list reviewed for High Risk Meds patients 65 and older: Yes ATTENDING PHYSICIAN STATEMENT I saw and evaluated the patient. I reviewed the resident's note and discussed the case with the resident. I agree with the resident's findings and plan as documented. SUBJECTIVE: OBJECTIVE: ASSESSMENT AND PLAN:
--- NOTE | 2020-04-15 15:46 | PN ---
Teaching Attending Note Name of Resident: Miriam Galo ATTENDING PHYSICIAN STATEMENT I saw and evaluated the patient. I reviewed the resident's note and discussed the case with the resident. I agree with the resident's findings and plan as documented. SUBJECTIVE: Patient has no complaints. OBJECTIVE: Vital Signs Period Temp Pulse Resp BP Sys/Potter Pulse Ox Last 24 Hr 98.2 F-98.3 F 51-54 20-20 132-148/66-83 96-96 HEART: S1S2, RRR LUNGS: Clear ABDOMEN: Soft, non-tender, non-distended, normal BS EXTREMITIES: No edema. 2cm x 3cm wound on left magallon with scant yellow-brown discharge and decreased surrounding erythema Laboratory Results - last 24 hr 04/13/20 04/14/20 04/14/20 13:02 17:31 21:50 Sodium Potassium Chloride Carbon Dioxide Anion Gap BUN Creatinine Est GFR (CKD-EPI)AfAm Est GFR (CKD-EPI)NonAf POC Glucometer 152 149 Random Glucose Calcium Triglycerides Cholesterol Total LDL Cholesterol HDL Cholesterol TSH COVID-19 ([facility]) Not detected 04/15/20 04/15/20 04/15/20 06:06 06:46 12:04 Sodium 139 Potassium 4.5 Chloride 106 Carbon Dioxide 27 Anion Gap 6 L BUN 13.6 Creatinine 0.6 Est GFR (CKD-EPI)AfAm 97.01 Est GFR (CKD-EPI)NonAf 83.70 POC Glucometer 128 146 Random Glucose 144 H Calcium 9.2 Triglycerides 107 Cholesterol 153 Total LDL Cholesterol 84 HDL Cholesterol 64 H TSH 2.25 COVID-19 ([facility]) Current Medications Generic Name Dose Route Start Last Admin Trade Name [id number] PRN Reason Stop Dose Admin Aluminum Sulfate/Calcium Acetate 1.9 gm 04/15/20 13:30 [place] - TP DAILY [facility] Aspirin 81 mg 04/14/20 10:04/15/20 10:43 Asa - PO 81 mg DAILY [facility] Administration Atorvastatin Calcium 20 mg 04/14/20 22:00 04/14/20 21:51 Lipitor - PO 20 mg HS [facility] Administration Bacitracin 1 applic 04/14/20 10:00 04/15/20 10:44 Bacitracin - TP 1 applic DAILY [facility]MINI Administration Enoxaparin Sodium 40 mg 04/13/20 18:30 04/15/20 10:43 Lovenox - SQ 40 mg DAILY PADMINI Administration Gabapentin 300 mg 04/13/20 22:00 04/14/20 21:51 Neurontin - PO 300 mg HS PADMINI Administration Piperacillin Sod/Tazobactam 50 mls @ 100 mls/hr 04/14/20 10:00 04/15/20 10:43 Sod 3.375 gm/ Dextrose IVPB 100 mls/hr Q8H-IV PADMINI Administration Protocol Insulin Aspart 1 vial 04/13/20 22:00 04/15/20 13:21 Novolog Vial Sliding Scale - SQ Not Given ACHS PADMINI Protocol Losartan Potassium 50 mg 04/14/20 10:00 04/15/20 10:44 Cozaar - PO 50 mg DAILY PADMINI Administration Metoprolol Succinate 12.5 mg 04/13/20 18:45 04/15/20 10:44 Toprol Xl - PO 12.5 mg DAILY PADMINI Administration Polyethylene Glycol 17 gm 04/15/20 13:15 Miralax (For Daily Use) - PO DAILY PADMINI ASSESSMENT AND PLAN: This is an 85 year old woman with a history of HTN, hyperlipidemia, CAD, CABG, type 2 DM who presented to the ED with pain and foul-smelling drainage from a left leg wound. 1. Infected ulcer with cellulitis of left leg - Wound culture growing Enterobacter, Strep, non-lactose fermenting gram neg rods - Continue Zosyn - Vancomycin discontinued - Wound care 2. Type 2 DM with diabetic peripheral neuropathy - Metformin held - Continue Novolog sliding scale - Continue Neurontin - HbA1c 6.8 3. HTN - Continue Cozaar, Toprol XL 4. Hyperlipidemia - Continue Lipitor 5. CAD, history of CABG - Continue aspirin, Toprol XL, Lipitor
[2020-04-15] MEDS: POLYETHYLENE GLYCOL 3350 119 GM BTL PO SCH (16:27)
[2020-04-15] MEDS: CALCIUM ACETATE/AL SULFATE TOP 1.9 GM/PACKET PACKET TP SCH (16:27)
[2020-04-15] MEDS: ATORVASTATIN CA 20 MG TABLET (FP) PO SCH (21:52)
[2020-04-15] MEDS: GABAPENTIN 300 MG CAPSULE PO SCH (21:53)
[2020-04-16] MEDS ORDERED: PIPERACILLIN/TAZOBACTAM 3.375 GM VIAL IVPB ONE ×3 (02:00→17:52)
[2020-04-16] MEDS ORDERED: DEXTROSE 5%-WATER - 50 ML IVPB ONE ×3 (02:00→17:52)
[2020-04-16] MEDS: PIPERACILLIN/TAZOB 3.375 GM 3.375 GM in DEXTROSE 5%-WATER - 50 ML IVPB SCH ×3 (02:15→17:54)
[2020-04-16] MEDS ORDERED: PT OWN MED DRAWER 7, Y5N ONE ×2 (06:45→09:37)
[2020-04-16 08:01] LABS: BLOOD UREA NITROGEN 17.4 mg/dL (7-18); CREATININE 0.6 mg/dL (0.55-1.3); MAGNESIUM 2.1 mg/dL (1.8-2.4); POTASSIUM 4.3 mmol/L (3.5-5.1)
--- NOTE | 2020-04-16 09:08 | PN ---
Progress Note, Physician History of Present Illness: stable no complaints wound looks better - Current Medication List Current Medications: Active Medications Aluminum Sulfate/Calcium Acetate ([place]ome[place] -) 1.9 gm TP DAILY [facility] Last Admin: 04/15/20 16:27 Dose: 1.9 gm Documented by: Aspirin (Asa -) 81 mg PO DAILY [facility] Last Admin: 04/15/20 10:43 Dose: 81 mg Documented by: Atorvastatin Calcium (Lipitor -) 20 mg PO HS [facility] Last Admin: 04/15/20 21:52 Dose: 20 mg Documented by: Bacitracin (Bacitracin -) 1 applic TP DAILY [facility] Last Admin: 04/15/20 10:44 Dose: 1 applic Documented by: Enoxaparin Sodium (Lovenox -) 40 mg SQ DAILY [facility] Last Admin: 04/15/20 10:43 Dose: 40 mg Documented by: Gabapentin (Neurontin -) 300 mg PO HS [facility] Last Admin: 04/15/20 21:53 Dose: 300 mg Documented by: Piperacillin Sod/Tazobactam (Sod 3.375 gm/ Dextrose) 50 mls @ 100 mls/hr IVPB Q8H-IV [facility]; Protocol Last Admin: 04/16/20 02:15 Dose: 100 mls/hr Documented by: Insulin Aspart (Novolog Vial Sliding Scale -) 1 vial SQ ACHS [facility]; Protocol Last Admin: 04/15/20 21:52 Dose: 2 units Documented by: Losartan Potassium (Cozaar -) 50 mg PO DAILY [facility] Last Admin: 04/15/20 10:44 Dose: 50 mg Documented by: Metoprolol Succinate (Toprol Xl -) 12.5 mg PO DAILY [facility] Last Admin: 04/15/20 10:44 Dose: 12.5 mg Documented by: Polyethylene Glycol (Miralax (For Daily Use) -) 17 gm PO DAILY [facility] Last Admin: 04/15/20 16:27 Dose: 17 gm Documented by: - Objective Vital Signs: Vital Signs Temperature 97.4 F L 04/16/20 06:41 Pulse Rate 53 L 04/16/20 06:41 Respiratory Rate 20 04/16/20 06:41 Blood Pressure 162/88 04/16/20 06:41 O2 Sat by Pulse Oximetry (%) 97 04/16/20 06:41 Constitutional: Yes: No Distress, Calm Cardiovascular: Yes: S1, S2 Respiratory: Yes: Regular, CTA Bilaterally Gastrointestinal: Yes: Normal Bowel Sounds, Soft Musculoskeletal: Yes: WNL Extremities: Yes: Erythema (improved), Other Wound/Incision: Yes: Clean/Dry, Dressing Dry and Intact, Dressing Removed, Other Neurological: Yes: Alert, Oriented Labs: CBC, BMP 04/14/20 07:36 04/16/20 06:28 INR, PTT INR 1.03 (0.83-1.09) 04/13/20 15:20 Assessment/Plan 85 year old F (Indian-speaking) with PMH HTN, HLD, CAD s/p CABG, DM, presented to ED for L leg wound infection. She is admitted for possible diabetic ulcer with surrounding cellulitis of LLE. ulcer of the left leg cellulitis of the left leg htn hld dm plan can be changed to oral abx will d/w the team
[2020-04-16] MEDS: ASPIRIN 81 MG CHEWABLE TABLETS PO SCH (09:48)
[2020-04-16] MEDS: metoPROLOL SUCCINATE 25 MG TAB.SR.24H (FP) PO SCH (09:48)
[2020-04-16] MEDS: ENOXAPARIN NA (PORCINE) 40 MG/0.4 ML DISP.SYRIN SQ SCH (09:49)
[2020-04-16] MEDS: LOSARTAN POTASSIUM 50 MG TABLET PO SCH (09:50)
[2020-04-16] MEDS: CALCIUM ACETATE/AL SULFATE TOP 1.9 GM/PACKET PACKET TP SCH (09:50)
[2020-04-16] MEDS: BACITRACIN 15 GM TUBE TOPICAL OINTMENT TP SCH (09:50)
[2020-04-16] MEDS: INSULIN SLIDING SCALE (NOVOLOG) 1 VIAL SQ SCH ×4 (09:55→22:28)
[2020-04-16] MEDS: POLYETHYLENE GLYCOL 3350 119 GM BTL PO SCH (10:00)
--- NOTE | 2020-04-16 14:20 | PN ---
Physical Exam: SUBJECTIVE: Patient seen and examined. Stated that she has some pain in her wound. Denies fever, chills, SOB, c/p, abd pain, n/v/d. OBJECTIVE: Vital Signs Period Temp Pulse Resp BP Sys/Potter Pulse Ox Last 24 Hr 97.1 F-97.7 F 53-60 20-20 106-162/58-88 95-97 GENERAL: Awake, alert, and fully oriented, in no acute distress. HEENT: NCAT, EOMI, moist mucus membranes LUNGS: CTA b/l, no wheezes HEART: Regular rate and rhythm, normal S1 and S2 without murmur ABDOMEN: Soft, nontender, not distended, normoactive bowel sounds EXTREMITIES: Warm, well-perfused. SKIN: Warm, dry. LLE ulcer 3cm, circular, foul smelling, skin sloughing. Scant purulent drainage. Improved. CBC, BMP 04/14/20 07:36 04/16/20 06:28 Active Medications Aluminum Sulfate/Calcium Acetate ([place] -) 1.9 gm TP DAILY [facility] Last Admin: 04/16/20 09:50 Dose: 1.9 gm Documented by: Aspirin (Asa -) 81 mg PO DAILY [facility] Last Admin: 04/16/20 09:48 Dose: 81 mg Documented by: Atorvastatin Calcium (Lipitor -) 20 mg PO HS [facility] Last Admin: 04/15/20 21:52 Dose: 20 mg Documented by: Bacitracin (Bacitracin -) 1 applic TP DAILY [facility] Last Admin: 04/16/20 09:50 Dose: 1 applic Documented by: Enoxaparin Sodium (Lovenox -) 40 mg SQ DAILY [facility] Last Admin: 04/16/20 09:49 Dose: 40 mg Documented by: Gabapentin (Neurontin -) 300 mg PO HS [facility] Last Admin: 04/15/20 21:53 Dose: 300 mg Documented by: Piperacillin Sod/Tazobactam (Sod 3.375 gm/ Dextrose) 50 mls @ 100 mls/hr IVPB Q8H-IV [facility]; Protocol Last Admin: 04/16/20 09:51 Dose: 100 mls/hr Documented by: Insulin Aspart (Novolog Vial Sliding Scale -) 1 vial SQ ACHS [facility]; Protocol Last Admin: 04/16/20 12:21 Dose: Not Given Documented by: Losartan Potassium (Cozaar -) 50 mg PO DAILY [facility] Last Admin: 04/16/20 09:50 Dose: 50 mg Documented by: Metoprolol Succinate (Toprol Xl -) 12.5 mg PO DAILY [facility] Last Admin: 04/16/20 09:48 Dose: 12.5 mg Documented by: Polyethylene Glycol (Miralax (For Daily Use) -) 17 gm PO DAILY [facility] Last Admin: 04/16/20 10:00 Dose: 17 gm Documented by: ASSESSMENT/PLAN: 85 year old F (Arabic-speaking) with PMH HTN, HLD, CAD s/p CABG, DM, presented to ED for L leg wound infection. She is admitted for possible diabetic ulcer with surrounding cellulitis of LLE. Ulcer and cellulitis, improving - ID and Vascular consulted. -c/w Zosyn 3.375 q8H (04/14) Today is day 3. -Will change to PO when wound culture final. -Wound culture grew alpha hemolytic strep, non-lactose fermenting GNB and enterobacter gergoviae. Pending final results. -will c/w leg elevation, bacitracin, domeboro soaks qD. When changing dressing, put non-adhesive pad on top of wound before dressing with gauze to prevent sticking. Constipation -c/w miralax 17g qD HTN, HLD, CAD s/p CABG - c/w ASA 81mg, losartan 50mg qD, atorvastatin 20mg qD, metoprolol 12.5mg qD - monitor BP DM, neuropathy -ISS and BGM ACHS -HbA1c 6.8 -held home metformin -c/w gabapentin 300 qHS Ppx -DVT: lovenox FEN -no standing fluids -replete lytes as needed, K+ goal of 4, Mg++ goal of 2. -sodium/diabetic diet Dispo: continue to monitor in med/surg Visit type - Emergency Visit Emergency Visit: Yes ED Registration Date: 04/13/20 Care time: The patient presented to the Emergency Department on the above date and was hospitalized for further evaluation of their emergent condition. - New Patient This patient is new to me today: No - Critical Care Critical Care patient: No - Medication Review Med list reviewed for High Risk Meds patients 65 and older: Yes ATTENDING PHYSICIAN STATEMENT I saw and evaluated the patient. I reviewed the resident's note and discussed the case with the resident. I agree with the resident's findings and plan as documented. SUBJECTIVE: OBJECTIVE: ASSESSMENT AND PLAN:
--- NOTE | 2020-04-16 15:37 | PN ---
Teaching Attending Note Name of Resident: Miriam Galo ATTENDING PHYSICIAN STATEMENT I saw and evaluated the patient. I reviewed the resident's note and discussed the case with the resident. I agree with the resident's findings and plan as documented. SUBJECTIVE: no pain, no fever or chills, no NEWELL , no discomfort in leg. " I feel fine " OBJECTIVE: NAD, awake, alert, cooperative Lungs: CTAB ext : L magallon ulcer about 2 cm in diamerter, with small area of surrounding erythema and increased warmth. no discharge . no edema or erythema o n R leg ASSESSMENT AND PLAN: 85 y/o lady with h/o CAD, HLP, HTN, DM , who presented with an infected ulcer on L magallon . 1- Infected ulcer on L magallon: improved - cont current Abx , zosyn - follow final wound cx, for Id and sens of the other 2 organisms - d/w Dr. Thomas 2- H/o CAD, HTN, HLP: cont ASa, BB and losartan 3- DM : SSI 4- DVT px: cont lovenox
[2020-04-16] MEDS: GABAPENTIN 300 MG CAPSULE PO SCH (22:28)
[2020-04-16] MEDS: ATORVASTATIN CA 20 MG TABLET (FP) PO SCH (22:28)
[2020-04-17] MEDS ORDERED: DEXTROSE 5%-WATER - 50 ML IVPB ONE ×2 (02:29→09:52)
[2020-04-17] MEDS ORDERED: PIPERACILLIN/TAZOBACTAM 3.375 GM VIAL IVPB ONE ×2 (02:29→09:51)
[2020-04-17] MEDS: PIPERACILLIN/TAZOB 3.375 GM 3.375 GM in DEXTROSE 5%-WATER - 50 ML IVPB SCH ×2 (02:39→10:00)
[2020-04-17] MEDS: INSULIN SLIDING SCALE (NOVOLOG) 1 VIAL SQ SCH ×4 (06:12→23:39)
[2020-04-17 08:14] LABS: HEMATOCRIT 36.8 % (32.4-45.2); HEMOGLOBIN 12.2 GM/dL (10.7-15.3); MCH 30.5 pg (25.7-33.7); MCHC 33.3 g/dl (32.0-36.0); MEAN CELL VOLUME 91.5 fl (80-96); MEAN PLT VOLUME 8.8 fl (7.5-11.1); PLATELET COUNT 204 K/MM3 (134-434); RBC 4.02 M/mm3 (3.60-5.2); RDW 13.5 % (11.6-15.6); WHITE BLOOD COUNT 6.9 K/mm3 (4.0-10.0)
[2020-04-17 08:43] LABS: BLOOD UREA NITROGEN 16.8 mg/dL (7-18); CALCIUM 8.9 mg/dL (8.5-10.1); CREATININE 0.7 mg/dL (0.55-1.3)
[2020-04-17] MEDS: ACETAMINOPHEN 325 MG TABLET (FP) PO PRN ×2 (09:58→22:45)
[2020-04-17] MEDS: ENOXAPARIN NA (PORCINE) 40 MG/0.4 ML DISP.SYRIN SQ SCH (09:58)
[2020-04-17] MEDS: LOSARTAN POTASSIUM 50 MG TABLET PO SCH (09:59)
[2020-04-17] MEDS: POLYETHYLENE GLYCOL 3350 119 GM BTL PO SCH (09:59)
[2020-04-17] MEDS: metoPROLOL SUCCINATE 25 MG TAB.SR.24H (FP) PO SCH (09:59)
[2020-04-17] MEDS: ASPIRIN 81 MG CHEWABLE TABLETS PO SCH (09:59)
--- NOTE | 2020-04-17 11:22 | PN ---
Progress Note, Physician History of Present Illness: stable no new issues - Current Medication List Current Medications: Active Medications Acetaminophen (Tylenol -) 650 mg PO Q4H PRN PRN Reason: PAIN LEVEL 6-10 Last Admin: 04/17/20 09:58 Dose: 650 mg Documented by: Aluminum Sulfate/Calcium Acetate ([place] -) 1.9 gm TP DAILY [facility] Last Admin: 04/16/20 09:50 Dose: 1.9 gm Documented by: Aspirin (Asa -) 81 mg PO DAILY [facility] Last Admin: 04/17/20 09:59 Dose: 81 mg Documented by: Atorvastatin Calcium (Lipitor -) 20 mg PO HS [facility] Last Admin: 04/16/20 22:28 Dose: 20 mg Documented by: Bacitracin (Bacitracin -) 1 applic TP DAILY [facility] Last Admin: 04/16/20 09:50 Dose: 1 applic Documented by: Enoxaparin Sodium (Lovenox -) 40 mg SQ DAILY [facility] Last Admin: 04/17/20 09:58 Dose: 40 mg Documented by: Gabapentin (Neurontin -) 300 mg PO HS [facility] Last Admin: 04/16/20 22:28 Dose: 300 mg Documented by: Piperacillin Sod/Tazobactam (Sod 3.375 gm/ Dextrose) 50 mls @ 100 mls/hr IVPB Q8H-IV [facility]; Protocol Last Admin: 04/17/20 10:00 Dose: 100 mls/hr Documented by: Insulin Aspart (Novolog Vial Sliding Scale -) 1 vial SQ ACHS [facility]; Protocol Last Admin: 04/17/20 06:12 Dose: Not Given Documented by: Losartan Potassium (Cozaar -) 50 mg PO DAILY [facility] Last Admin: 04/17/20 09:59 Dose: 50 mg Documented by: Metoprolol Succinate (Toprol Xl -) 12.5 mg PO DAILY [facility] Last Admin: 04/17/20 09:59 Dose: 12.5 mg Documented by: Polyethylene Glycol (Miralax (For Daily Use) -) 17 gm PO DAILY [facility] Last Admin: 04/17/20 09:59 Dose: Not Given Documented by: - Objective Vital Signs: Vital Signs Temperature 98 F 04/17/20 09:56 Pulse Rate 58 L 04/17/20 09:56 Respiratory Rate 18 04/17/20 09:56 Blood Pressure 133/68 04/17/20 09:56 O2 Sat by Pulse Oximetry (%) 98 04/17/20 09:56 Constitutional: Yes: No Distress, Calm Cardiovascular: Yes: S1, S2 Respiratory: Yes: Regular, CTA Bilaterally Gastrointestinal: Yes: Normal Bowel Sounds, Soft Musculoskeletal: Yes: WNL Extremities: Yes: Other Wound/Incision: Yes: Dressing Dry and Intact Neurological: Yes: Alert, Oriented Psychiatric: Yes: Alert, Oriented Labs: CBC, BMP 04/17/20 07:47 04/17/20 07:47 INR, PTT INR 1.03 (0.83-1.09) 04/13/20 15:20 Assessment/Plan 85 year old F (Romanian-speaking) with PMH HTN, HLD, CAD s/p CABG, DM, presented to ED for L leg wound infection. She is admitted for possible diabetic ulcer with surrounding cellulitis of LLE. ulcer of the left leg cellulitis of the left leg htn hld dm plan can be changed to oral abx wound care
[2020-04-17] MEDS: CALCIUM ACETATE/AL SULFATE TOP 1.9 GM/PACKET PACKET TP SCH (13:40)
[2020-04-17] MEDS: BACITRACIN 15 GM TUBE TOPICAL OINTMENT TP SCH (13:40)
--- NOTE | 2020-04-17 13:44 | PN ---
Teaching Attending Note Name of Resident: Mir De Leon ATTENDING PHYSICIAN STATEMENT I saw and evaluated the patient. I reviewed the resident's note and discussed the case with the resident. I agree with the resident's findings and plan as documented. SUBJECTIVE: minimal pain in L leg wound. Has no fever or chills or CP or Abd pain or SOB OBJECTIVE: NAD, awake, alert, cooperative Lungs: CTAB Abd: soft, NT, ND, nL BS Ext: L magallon ulcer about 2 cm in diamerter, with small area of surrounding erythema and increased warmth. slough on surface of wound No edema or erythema on R leg ASSESSMENT AND PLAN: 85 y/o lady with h/o CAD, HLP, HTN, DM , who presented with an infected ulcer on L magallon . 1- Infected ulcer on L magallon: improved final cx was reviewed. cellulitis improved with zosyn despite no coverage for Acinetobacter ( likely not pathological) . - will switch to Augmentin as out pt - cont wound care - VNS arranged - case was d/w dr. Martha diaz the rest of home meds disp: dC home with VNS
--- NOTE | 2020-04-17 13:48 | DS ---
Physical Exam: SUBJECTIVE: Patient seen and examined. No acute events over night. Pt. complaining of some right lower extremity pain. OBJECTIVE: Vital Signs Period Temp Pulse Resp BP Sys/Potter Pulse Ox Last 24 Hr 97.4 F-98 F 57-72 18-20 120-148/68-87 94-99 PHYSICAL EXAM GENERAL: The patient is awake, alert, in no acute distress. HEAD: Normal with no signs of trauma. EYES: Sclera anicteric, conjunctiva clear. ENT: Moist mucous membranes. LUNGS: Breath sounds equal, clear to auscultation bilaterally, no wheezes, no crackles, no accessory muscle use. HEART: Regular rate and rhythm, S1, S2 without murmur, rub or gallop. ABDOMEN: Soft, nontender, nondistended, normoactive bowel sounds, no guarding, no rebound EXTREMITIES: 2+ pulses, warm, well-perfused, no edema. NEUROLOGICAL: Moves all extrmeities, Normal speech, gait not observed. PSYCH: Normal mood, normal affect. SKIN: Warm, dry. REPORTED: LLE ulcer 3cm, circular, Dressing C/D/I, was changed yesterday. LABS Laboratory Results - last 24 hr 04/16/20 04/16/20 04/17/20 17:46 22:27 06:11 WBC RBC Hgb Hct MCV MCH MCHC RDW Plt Count MPV Sodium Potassium Chloride Carbon Dioxide Anion Gap BUN Creatinine Est GFR (CKD-EPI)AfAm Est GFR (CKD-EPI)NonAf POC Glucometer 167 132 138 Random Glucose Calcium 04/17/20 04/17/20 04/17/20 07:47 07:47 11:48 WBC 6.9 RBC 4.02 Hgb 12.2 Hct 36.8 MCV 91.5 MCH 30.5 MCHC 33.3 RDW 13.5 Plt Count 204 MPV 8.8 Sodium 139 Potassium 4.0 Chloride 106 Carbon Dioxide 29 Anion Gap 5 L BUN 16.8 Creatinine 0.7 Est GFR (CKD-EPI)AfAm 92.21 Est GFR (CKD-EPI)NonAf 79.56 POC Glucometer 172 Random Glucose 136 H Calcium 8.9 HOSPITAL COURSE: Date of Admission:04/13/20 Date of Discharge: 04/17/20 Pt. is an 85 y.o. F w/ PMHx. of HTN, HLD, CAD (s/p CABG), and DM admitted for diabetic ulcer with surrounding cellulitis. Pt. was started on IV Zosyn for 4 days. Wound cultures grew Acinetobacter Baumanii, Enterobacter Gergoviae and alpha hemolytic strep. X-ray did not show signs of OM but did show bone density loss. Pt. was seen by Infectious Disease and wound care who advised topical bacitracin, [place] and leg elevation. Pt. was found to be constipated and started on Miralax. Pt. stable for discharge home with VNS services. Hospital course discussed and agreed upon with Pt. and medical staff. Hospital follow-up and medication adjustments were as detailed below. Minutes to complete discharge: 30 Discharge Summary Problems reviewed: Yes Reason For Visit: ULCER OF LOWER EXTREMITY DUE TO DIABETES MELLITUS Current Active Problems Cellulitis of leg, left (Acute) Coronary artery disease (Chronic) Diabetes mellitus (Chronic) Hyperlipidemia (Chronic) Hypertension (Chronic) Leg wound, left (Chronic) S/P CABG x 1 (Chronic) Condition: Improved - Instructions Diet, Activity, Other Instructions: Your Hospitalization: You were admitted to the hospital for suspicion of left leg ulcer infection. We did imaging of your left leg. You were found to have no immediately concerning findings however we did notice that you had loss of bone denisity. You were treated with antibiotics and proper wound care with improvement of your symptoms. Medications: continue your home medications You have *NEW* medication. Please take them as prescribed: -Bacitracin 1 application daily on your wound. -[place]ome[place] 1.9g topically daily on your wound. -Augmentin EVERY 12 HOURs for 6 days -Bacid ONCE a day for 6 days Follow up appointments: -Please make an appointment to see your wound care doctor, Dr. Cruz, 1 week from today. he willinstruct you on wound care and evaluate the wound -Please make an appointment to see a primary care provider, Dr. Sanches, 2 weeks from today. You may discuss your hospitalization with him including the possibility of further testing to address your loss of bone density. Additional information: -You are being discharged home. -Please keep your wound clean and dry. You may put a non-adhesive dressing on it before wrapping it with gauze.change dressing daily . Please keep your legs elevated when you are laying down. - No scrubbing to the wounds -Please call 911 or come directly to the emergency department if you experience recurrence of the symptoms that brought you to the hospital, unusual headache, vision change, shortness of breath, chest pain, numbness, tingling, loss of alertness/awareness, loss of function, unusual bleeding or any alarming symptoms. Referrals: Adriano Sanches MD [Primary Care Provider] - 2 Weeks Emerson Cruz DO [Staff Physician] - 1 Week Disposition: VNS/HOME HEALTH CARE - Home Medications Comprehensive Discharge Medication List: Ambulatory Orders Calcium Carb/Vit D3/Minerals [Calcium 600 + D Tablet] 2 each PO DAILY tablet 11/01/12 Atorvastatin Ca [Lipitor] 20 mg PO DAILY 05/03/19 Gabapentin 300 mg PO HS 05/03/19 Aspirin [ASA -] 81 mg PO DAILY 04/13/20 Irbesartan [Avapro (Nf) -] 150 mg PO DAILY 04/13/20 metFORMIN HCL [Metformin ER Osmotic] 500 mg PO BID 04/13/20 Bacitracin - [Bacitracin Topical Ointment -] 1 applic TP DAILY #1 tube 04/15/20 Calcium Acetate/Al Sulfate Top [Dome[place] -] 1.9 gm TP DAILY #1 packet 04/15/20 Amoxicillin/Potassium Clav [Augmentin 875-125 Tablet] 1 each PO BID #12 tablet 04/17/20 Lactobacillus Acidophilus [Bacid -] 1 each PO DAILY #6 capsule 04/17/20 ATTENDING PHYSICIAN STATEMENT I saw and evaluated the patient. I reviewed the resident's note and discussed the case with the resident. I agree with the resident's findings and plan as documented. SUBJECTIVE: OBJECTIVE: ASSESSMENT AND PLAN:
[2020-04-17] MEDS: LACTOBACILLUS ACIDOPHILUS 1 TABLET PO SCH (16:02)
[2020-04-17] MEDS ORDERED: AMOX TR/POT CLAV 875MG/125MG TABLETS (FP) PO ONE (18:00)
[2020-04-17] MEDS: GABAPENTIN 300 MG CAPSULE PO SCH (22:43)
[2020-04-17] MEDS: ATORVASTATIN CA 20 MG TABLET (FP) PO SCH (22:43)
[2020-04-18] MEDS ORDERED: PT OWN MED DRAWER 7, Y5N ONE ×2 (00:52→10:52)
[2020-04-18] MEDS: INSULIN SLIDING SCALE (NOVOLOG) 1 VIAL SQ SCH ×2 (06:08→11:03)
[2020-04-18] MEDS ORDERED: AMOX TR/POT CLAV 875MG/125MG TABLETS (FP) PO ONE (08:45)
[2020-04-18] MEDS: ACETAMINOPHEN 325 MG TABLET (FP) PO PRN (11:00)
[2020-04-18] MEDS: LACTOBACILLUS ACIDOPHILUS 1 TABLET PO SCH (11:01)
[2020-04-18] MEDS: ENOXAPARIN NA (PORCINE) 40 MG/0.4 ML DISP.SYRIN SQ SCH (11:03)
[2020-04-18] MEDS: POLYETHYLENE GLYCOL 3350 119 GM BTL PO SCH (11:04)
[2020-04-18] MEDS: metoPROLOL SUCCINATE 25 MG TAB.SR.24H (FP) PO SCH (11:04)
[2020-04-18] MEDS: LOSARTAN POTASSIUM 50 MG TABLET PO SCH (11:04)
[2020-04-18] MEDS: ASPIRIN 81 MG CHEWABLE TABLETS PO SCH (11:05)
[2020-04-18 11:11] VITALS: PULSE 57
[2020-04-18 14:07] VITALS: BP 127/70; TEMP 98.1
--- NOTE | 2020-04-18 15:16 | HOSP ---
Subjective - Review of Symptoms Events since last encounter: gayle was discharged yesterday but did not leave. Spoke to RN, no diarrhea . patient has no complaionts . on exam wound has less erythema arounf the ulcer with slough . cont po abx and cont plan as per yesterday's dc instructions Physical Examination Vital Signs: Vital Signs Temperature 98.1 F 04/18/20 14:06 Pulse Rate 57 L 04/18/20 14:06 Respiratory Rate 18 04/18/20 14:06 Blood Pressure 127/70 04/18/20 14:06 O2 Sat by Pulse Oximetry (%) 98 04/18/20 14:06 Labs: CBC, BMP 04/17/20 07:47 04/17/20 07:47
== END 2020-04-18 14:45 | disposition home health service (06) | DRG 638 ==
LOC: JER 13:49 → JERBED 17:30 → J8W 22:28
PROVIDERS: ATTEND Internal Medicine
DX: E11.622 Type 2 diabetes mellitus with other skin ulcer (principal); L03.116 Cellulitis of left lower limb; L97.829 Non-pressure chronic ulcer of other part of left lower leg with unspecified severity; I10 Essential (primary) hypertension; I25.10 Atherosclerotic heart disease of native coronary artery without angina pectoris; Z95.1 Presence of aortocoronary bypass graft; E11.65 Type 2 diabetes mellitus with hyperglycemia; E55.9 Vitamin D deficiency, unspecified; E11.42 Type 2 diabetes mellitus with diabetic polyneuropathy; K59.00 Constipation, unspecified; Z79.84 Long term (current) use of oral hypoglycemic drugs
CPT/HCPCS: 36415; 73590-TC-LT-FY; 80048; 80053; 80061; 81003; 82962; 83036; 83721; 83735; 84100; 84443; 85025; 85027; 85610; 85730; 87070; 87186; 87205; 93005; 93010; 93971-TC; 97116-GP; 97161-GP; 99285-25; U0003

== ENCOUNTER 2020-07-02 16:14 | Inpatient (IN) | payer OTHER ==
[2020-07-02 18:28] LABS: HEMATOCRIT 40.6 % (32.4-45.2); HEMOGLOBIN 13.2 GM/dl (10.7-15.3); MCHC 32.6 g/dl (32.0-36.0); MEAN PLT VOLUME 9.1 fl (7.5-11.1); PLATELET COUNT 232 K/MM3 (134-434); RBC 4.41 M/mm3 (3.60-5.2); RDW 12.5 % (11.6-15.6); WHITE BLOOD COUNT 12.1 K/mm3 (4.0-10.8)
[2020-07-02 18:46] LABS: ALBUMIN 4.1 g/dl (3.4-5.0); BILIRUBIN,TOTAL 0.8 mg/dl (0.2-1); CALCIUM 9.5 mg/dl (8.5-10); CREATININE 0.8 mg/dl (0.55-1.3); POTASSIUM 4.3 mmol/L (3.5-5.1)
[2020-07-02 20:17] LABS: PLATELET ESTIMATE ADEQUATE
[2020-07-02 22:06] VITALS: BMI 24.7
[2020-07-03] MEDS: INSULIN SLIDING SCALE (NOVOLOG) 1 VIAL SQ SCH ×3 (06:39→17:00)
[2020-07-03 08:27] LABS: BASO % 0.8 % (0-2.0); EOS % 1.6 % (0-4.5); HEMATOCRIT 39.3 % (32.4-45.2); HEMOGLOBIN 12.7 GM/dl (10.7-15.3); LYMPH % 9.9 % (8-40); MCH 29.8 pg (25.7-33.7); MCHC 32.3 g/dl (32.0-36.0); MEAN CELL VOLUME 92.1 fl (80-96); MEAN PLT VOLUME 9.9 fl (7.5-11.1); NEUT % 82.7 % (42.8-82.8); PLATELET COUNT 73 K/MM3 (134-434); RBC 4.27 M/mm3 (3.60-5.2); RDW 12.3 % (11.6-15.6); WHITE BLOOD COUNT 9.2 K/mm3 (4.0-10.8)
[2020-07-03 08:40] LABS: ALBUMIN 3.6 g/dl (3.4-5.0); BILIRUBIN,TOTAL 1.2 mg/dl (0.2-1); CREATININE 0.6 mg/dl (0.55-1.3); MAGNESIUM 1.7 mg/dL (1.8-2.4); POTASSIUM 4.3 mmol/L (3.5-5.1); TOT PROT 6.4 g/dl (6.4-8.2)
[2020-07-03] MEDS ORDERED: DEXTROSE 5%-WATER - 50 ML IVPB ONE ×2 (09:01→18:39)
[2020-07-03] MEDS ORDERED: cefTRIAXone SODIUM 1 GM VIAL ONE (09:01)
[2020-07-03] MEDS: ASPIRIN 81 MG CHEWABLE TABLETS PO SCH (09:47)
[2020-07-03] MEDS: LOSARTAN POTASSIUM 50 MG TABLET PO SCH (09:48)
[2020-07-03] MEDS ORDERED: metoPROLOL SUCCINATE 25 MG TAB.SR.24H (FP) PO SCH (10:00)
[2020-07-03] MEDS ORDERED: CEFTRIAXONE 1 GM in DEXTROSE 5%-WATER - 50 ML IVPB SCH (10:00)
[2020-07-03] MEDS ORDERED: LACTOBACILLUS ACIDOPHILUS 1 TABLET PO SCH (10:00)
[2020-07-03] MEDS ORDERED: IRBESARTAN 150 MG PO SCH (10:45)
[2020-07-03] MEDS: CALCIUM ACETATE/AL SULFATE TOP 1.9 GM/PACKET PACKET TP SCH (11:51)
[2020-07-03] MEDS: ENOXAPARIN NA (PORCINE) 40 MG/0.4 ML DISP.SYRIN SQ SCH (11:51)
[2020-07-03] MEDS ORDERED: MAGNESIUM SULF 50% (8.12 MEQ/2 ML-1 GM VIAL) IVPB ONE (12:43)
[2020-07-03] MEDS ORDERED: PT OWN MED DRAWER 7, Y5N ONE (16:58)
[2020-07-03] MEDS ORDERED: AMOX TR/POT CLAV 875MG/125MG TABLETS (FP) PO SCH (17:30)
[2020-07-03] MEDS ORDERED: PIPERACILLIN/TAZOBACTAM 3.375 GM VIAL IVPB ONE (18:39)
[2020-07-03] MEDS: ACETAMINOPHEN 325 MG TABLET (FP) PO PRN (18:45)
[2020-07-03] MEDS ORDERED: PIPERACILLIN/TAZOB 3.375 GM 3.375 GM in DEXTROSE 5%-WATER - 50 ML IVPB SCH (18:45)
[2020-07-03] MEDS: PIPERACILLIN/TAZOB 3.375 GM 3.375 GM in DEXTROSE 5%-WATER - 50 ML IVPB SCH (18:45)
[2020-07-03] MEDS: ATORVASTATIN CA 20 MG TABLET (FP) PO SCH (21:30)
[2020-07-03] MEDS: GABAPENTIN 300 MG CAPSULE PO SCH (21:30)
[2020-07-04] MEDS ORDERED: DEXTROSE 5%-WATER - 50 ML IVPB ONE ×3 (01:10→17:45)
[2020-07-04] MEDS ORDERED: PIPERACILLIN/TAZOBACTAM 3.375 GM VIAL IVPB ONE ×3 (01:10→17:45)
[2020-07-04] MEDS: PIPERACILLIN/TAZOB 3.375 GM 3.375 GM in DEXTROSE 5%-WATER - 50 ML IVPB SCH ×2 (01:23→09:54)
[2020-07-04] MEDS: INSULIN SLIDING SCALE (NOVOLOG) 1 VIAL SQ SCH ×3 (06:13→17:06)
[2020-07-04] MEDS: ACETAMINOPHEN 325 MG TABLET (FP) PO PRN ×2 (06:24→21:03)
[2020-07-04] MEDS: CALCIUM ACETATE/AL SULFATE TOP 1.9 GM/PACKET PACKET TP SCH (09:19)
[2020-07-04] MEDS: ASPIRIN 81 MG CHEWABLE TABLETS PO SCH (09:19)
[2020-07-04] MEDS: metoPROLOL SUCCINATE 25 MG TAB.SR.24H (FP) PO SCH (09:20)
[2020-07-04] MEDS: LOSARTAN POTASSIUM 50 MG TABLET PO SCH (09:20)
[2020-07-04] MEDS: ENOXAPARIN NA (PORCINE) 40 MG/0.4 ML DISP.SYRIN SQ SCH (09:20)
[2020-07-04 12:50] LABS: BASO % 0.5 % (0-2.0); EOS % 1.7 % (0-4.5); HEMOGLOBIN 12.6 GM/dl (10.7-15.3); LYMPH % 14.1 % (8-40); MCH 29.8 pg (25.7-33.7); MCHC 32.2 g/dl (32.0-36.0); MEAN CELL VOLUME 92.4 fl (80-96); MEAN PLT VOLUME 10.1 fl (7.5-11.1); MONO % 6.7 % (3.8-10.2); PLATELET COUNT 223 K/MM3 (134-434); RBC 4.23 M/mm3 (3.60-5.2); RDW 12.3 % (11.6-15.6); WHITE BLOOD COUNT 9.7 K/mm3 (4.0-10.8)
[2020-07-04 12:58] LABS: ALBUMIN 3.4 g/dl (3.4-5.0); CALCIUM 8.8 mg/dl (8.5-10); CREATININE 0.6 mg/dl (0.55-1.3); POTASSIUM 4.2 mmol/L (3.5-5.1); TOT PROT 6.1 g/dl (6.4-8.2)
[2020-07-04] MEDS ORDERED: PIPERACILLIN/TAZOB 3.375 GM 3.375 GM in DEXTROSE 5%-WATER - 50 ML IVPB SCH (18:00)
[2020-07-04] MEDS: GABAPENTIN 300 MG CAPSULE PO SCH (21:03)
[2020-07-04] MEDS: ATORVASTATIN CA 20 MG TABLET (FP) PO SCH (21:04)
[2020-07-05] MEDS: INSULIN SLIDING SCALE (NOVOLOG) 1 VIAL SQ SCH ×2 (06:28→16:59)
[2020-07-05 08:13] LABS: BASO % 0.6 % (0-2.0); EOS % 3.2 % (0-4.5); HEMATOCRIT 35.2 % (32.4-45.2); HEMOGLOBIN 11.4 GM/dl (10.7-15.3); LYMPH % 20.6 % (8-40); MCH 29.8 pg (25.7-33.7); MCHC 32.3 g/dl (32.0-36.0); MEAN CELL VOLUME 92.1 fl (80-96); MEAN PLT VOLUME 9.8 fl (7.5-11.1); MONO % 8.5 % (3.8-10.2); NEUT % 67.1 % (42.8-82.8); PLATELET COUNT 180 K/MM3 (134-434); RBC 3.82 M/mm3 (3.60-5.2); RDW 12.5 % (11.6-15.6); WHITE BLOOD COUNT 6.8 K/mm3 (4.0-10.8)
[2020-07-05 08:17] LABS: ALBUMIN 2.9 g/dl (3.4-5.0); BILIRUBIN,TOTAL 0.9 mg/dl (0.2-1); CALCIUM 8.6 mg/dl (8.5-10); CREATININE 0.5 mg/dl (0.55-1.3); MAGNESIUM 1.9 mg/dL (1.8-2.4); POTASSIUM 4.2 mmol/L (3.5-5.1); TOT PROT 5.5 g/dl (6.4-8.2)
[2020-07-05] MEDS ORDERED: DEXTROSE 5%-WATER 100 ML IVPB ONE (09:08)
[2020-07-05] MEDS: ACETAMINOPHEN 325 MG TABLET (FP) PO PRN ×2 (09:10→20:30)
[2020-07-05] MEDS: CEFTRIAXONE 2 GM in DEXTROSE 5%-WATER 2 GM/100 ML BAG IVPB SCH (09:12)
[2020-07-05] MEDS: metoPROLOL SUCCINATE 25 MG TAB.SR.24H (FP) PO SCH (09:12)
[2020-07-05] MEDS: ASPIRIN 81 MG CHEWABLE TABLETS PO SCH (09:12)
[2020-07-05] MEDS: LOSARTAN POTASSIUM 50 MG TABLET PO SCH (09:12)
[2020-07-05] MEDS: ENOXAPARIN NA (PORCINE) 40 MG/0.4 ML DISP.SYRIN SQ SCH (09:13)
[2020-07-05] MEDS ORDERED: PT OWN MED DRAWER 7, Y5N ONE (09:49)
[2020-07-05] MEDS: CALCIUM ACETATE/AL SULFATE TOP 1.9 GM/PACKET PACKET TP SCH (10:50)
[2020-07-05] MEDS: GABAPENTIN 300 MG CAPSULE PO SCH (21:04)
[2020-07-05] MEDS: ATORVASTATIN CA 20 MG TABLET (FP) PO SCH (21:04)
[2020-07-06] MEDS: ACETAMINOPHEN 325 MG TABLET (FP) PO PRN (06:18)
[2020-07-06] MEDS: INSULIN SLIDING SCALE (NOVOLOG) 1 VIAL SQ SCH ×3 (06:29→11:55)
[2020-07-06 07:51] LABS: BASO % 0.7 % (0-2.0); EOS % 2.4 % (0-4.5); HEMATOCRIT 35.7 % (32.4-45.2); HEMOGLOBIN 11.6 GM/dl (10.7-15.3); LYMPH % 23.2 % (8-40); MCH 29.8 pg (25.7-33.7); MCHC 32.6 g/dl (32.0-36.0); MEAN CELL VOLUME 91.4 fl (80-96); MEAN PLT VOLUME 9.7 fl (7.5-11.1); MONO % 8.9 % (3.8-10.2); NEUT % 64.8 % (42.8-82.8); PLATELET COUNT 192 K/MM3 (134-434); RDW 12.4 % (11.6-15.6); WHITE BLOOD COUNT 6.4 K/mm3 (4.0-10.8)
[2020-07-06 07:57] LABS: ALBUMIN 2.9 g/dl (3.4-5.0); BILIRUBIN,TOTAL 0.7 mg/dl (0.2-1); CALCIUM 8.7 mg/dl (8.5-10); CREATININE 0.6 mg/dl (0.55-1.3); MAGNESIUM 1.9 mg/dL (1.8-2.4); POTASSIUM 4.1 mmol/L (3.5-5.1); TOT PROT 5.5 g/dl (6.4-8.2)
[2020-07-06] MEDS ORDERED: DEXTROSE 5%-WATER 100 ML IVPB ONE (09:13)
[2020-07-06] MEDS: ASPIRIN 81 MG CHEWABLE TABLETS PO SCH (09:45)
[2020-07-06] MEDS: metoPROLOL SUCCINATE 25 MG TAB.SR.24H (FP) PO SCH (09:46)
[2020-07-06] MEDS: CEFTRIAXONE 2 GM in DEXTROSE 5%-WATER 2 GM/100 ML BAG IVPB SCH (09:46)
[2020-07-06] MEDS: ENOXAPARIN NA (PORCINE) 40 MG/0.4 ML DISP.SYRIN SQ SCH (09:47)
[2020-07-06] MEDS: CALCIUM ACETATE/AL SULFATE TOP 1.9 GM/PACKET PACKET TP SCH (09:47)
[2020-07-06] MEDS: LOSARTAN POTASSIUM 50 MG TABLET PO SCH (09:47)
[2020-07-06 13:50] VITALS: BP 136/59; PULSE 63; TEMP 98.6
== END 2020-07-06 14:58 | DRG 690 ==
LOC: FER 16:14 → FM/S 19:43 → OBSVTOIN 07-05 10:37
PROVIDERS: ADMIT Internal Medicine; ATTEND Nurse Practitioner Acute Care
PROC: 0QSJXZZ Reposition Right Fibula, External Approach (ICD-10-PCS; principal; 2020-07-05)
PROC: 0QSGXZZ Reposition Right Tibia, External Approach (ICD-10-PCS; 2020-07-05)
DX: N39.0 Urinary tract infection, site not specified (principal); Z16.29 Resistance to other single specified antibiotic; I48.0 Paroxysmal atrial fibrillation; S82.841A Displaced bimalleolar fracture of right lower leg, initial encounter for closed fracture; B96.29 Other Escherichia coli [E. coli] as the cause of diseases classified elsewhere; R55 Syncope and collapse; B95.2 Enterococcus as the cause of diseases classified elsewhere; I10 Essential (primary) hypertension; E78.5 Hyperlipidemia, unspecified; I25.10 Atherosclerotic heart disease of native coronary artery without angina pectoris; E11.622 Type 2 diabetes mellitus with other skin ulcer; R26.81 Unsteadiness on feet; R29.6 Repeated falls; D69.6 Thrombocytopenia, unspecified
CPT/HCPCS: 36415; 70450-TC; 71046-TC-FY; 71250-TC; 72125-TC; 72170-TC-FY; 73610-TC-RT-FY; 73630-TC-LT; 73630-TC-RT-FY; 80053; 80061; 81003; 81015; 82550; 82962; 83735; 84443; 84484; 85025; 87040; 87086; 87186; 93005; 93306-TC; 93880-TC; 97116-GP; 99285-25; C9803; G0378; U0003

== ENCOUNTER 2022-11-02 06:12 | Observation (INO) | payer OTHER ==
[2022-11-02] MEDS ORDERED: ACETAMINOPHEN 1000 MG/100 ML BAG IVPB ONE (06:16)
[2022-11-02] MEDS ORDERED: ACETAMINOPHEN INJECTION 100 ML IVPB ONE (06:28)
[2022-11-02 06:42] LABS: BASO % 0.5 % (0-2.0); EOS % 0.8 % (0-4.5); HEMATOCRIT 36.8 % (32.4-45.2); HEMOGLOBIN 12.8 GM/dL (10.7-15.3); LYMPH % 22.7 % (8-40); MCHC 34.7 g/dl (32.0-36.0); MEAN CELL VOLUME 89.3 fl (80-96); MONO % 5.3 % (3.8-10.2); NEUT % 70.7 % (42.8-82.8); PLATELET COUNT 222 10^3/uL (134-434); RBC 4.12 M/mm3 (3.60-5.2); RDW 12.7 % (11.6-15.6); WHITE BLOOD COUNT 8.5 K/mm3 (4.0-10.0)
[2022-11-02 07:00] LABS: INR 1.04 (0.83-1.09); PROTHROMBIN TIME (PATIENT) 12.1 SEC (9.7-13.0)
[2022-11-02 07:02] LABS: ACTIVATED PTT 32.6 SECONDS (25.2-36.5)
[2022-11-02 07:11] LABS: CALCIUM 9.7 mg/dL (8.5-10.1)
[2022-11-02 07:12] LABS: ALBUMIN 3.8 g/dl (3.4-5.0)
[2022-11-02 07:15] LABS: CREATININE 0.5 mg/dL (0.55-1.3)
[2022-11-02 07:17] LABS: BILIRUBIN,TOTAL 0.5 mg/dL (0.2-1); TOT PROT 7.1 g/dl (6.4-8.2)
[2022-11-02] MEDS ORDERED: FAMOTIDINE 20 MG/50 ML IVPB 20 MG/50 ML MG IVPB ONE ×2 (07:41→07:59)
[2022-11-02] MEDS ORDERED: MAG HYDROX/AL HYDROX/SIMETH 30 ML UNIT-DOSE CUP PO ONE (07:41)
[2022-11-02] MEDS ORDERED: MAG HYDROX/AL HYDROX/SIMETH 30 ML UNIT-DOSE CUP ONE (07:59)
[2022-11-02 08:15] LABS: N-TERMINAL BNP 650.5 pg/ml (5-450)
[2022-11-02] MEDS ORDERED: ASPIRIN 81 MG CHEWABLE TABLETS PO ONE (09:55)
[2022-11-02] MEDS ORDERED: ENOXAPARIN NA (PORCINE) 40 MG/0.4 ML DISP.SYRIN SQ ONE (10:02)
[2022-11-02] MEDS ORDERED: ASPIRIN 325 MG ENTERIC COATED TABLET (FP) ONE (10:02)
[2022-11-02] MEDS: ENOXAPARIN NA (PORCINE) 40 MG/0.4 ML DISP.SYRIN SQ SCH (10:07)
[2022-11-02] MEDS ORDERED: SENNOSIDES 8.6MG TABLET (FP) PO PRN (10:34)
[2022-11-02 11:33] VITALS: RESP 18
[2022-11-02 11:43] VITALS: BMI 23.4
[2022-11-02] MEDS: HYDROCHLOROTHIAZIDE 25 MG TABLET (FP) PO SCH (13:07)
[2022-11-02] MEDS: INSULIN (NOVOLOG) ASPART 100 UNITS/ML 10ML VIAL SQ SCH ×2 (17:02→21:29)
[2022-11-02] MEDS: DOCUSATE SODIUM 100 MG CAPSULE (FP) PO SCH (21:18)
[2022-11-02] MEDS: LOSARTAN POTASSIUM 25 MG TABLET PO SCH (21:19)
[2022-11-02] MEDS: LOSARTAN POTASSIUM 50 MG TABLET PO SCH (21:19)
[2022-11-02] MEDS: GABAPENTIN 300 MG CAPSULE PO SCH (21:19)
[2022-11-02] MEDS: BISACODYL 5 MG TABLET.DR (FP) PO SCH (21:20)
[2022-11-03] MEDS: INSULIN (NOVOLOG) ASPART 100 UNITS/ML 10ML VIAL SQ SCH ×3 (06:15→16:57)
[2022-11-03 07:16] LABS: BASO % 0.6 % (0-2.0); EOS % 1.1 % (0-4.5); HEMOGLOBIN 11.4 GM/dL (10.7-15.3); LYMPH % 31.1 % (8-40); MCH 30.7 pg (25.7-33.7); MCHC 34.6 g/dl (32.0-36.0); MEAN CELL VOLUME 88.7 fl (80-96); MEAN PLT VOLUME 9.9 fl (7.5-11.1); MONO % 7.9 % (3.8-10.2); NEUT % 59.3 % (42.8-82.8); PLATELET COUNT 185 10^3/uL (134-434); RBC 3.72 M/mm3 (3.60-5.2); WHITE BLOOD COUNT 6.5 K/mm3 (4.0-10.0)
[2022-11-03 07:34] LABS: CALCIUM 9.1 mg/dL (8.5-10.1)
[2022-11-03 07:35] LABS: ALBUMIN 3.2 g/dl (3.4-5.0); MAGNESIUM 1.8 mg/dL (1.8-2.4)
[2022-11-03 07:37] LABS: PHOSPHOROUS 3.8 mg/dL (2.5-4.9)
[2022-11-03 07:38] LABS: CREATININE 0.4 mg/dL (0.55-1.3)
[2022-11-03 07:39] LABS: BILIRUBIN,TOTAL 0.8 mg/dL (0.2-1)
[2022-11-03] MEDS: LOSARTAN POTASSIUM 50 MG TABLET PO SCH ×3 (08:19→22:10)
[2022-11-03] MEDS ORDERED: ACETAMINOPHEN 500 MG TABLET (FP) PO PRN (08:33)
[2022-11-03] MEDS ORDERED: REGADENOSON 0.4 MG/5 ML PRE-FILLED SYRINGE IVPUSH ONE ×2 (09:59→10:15)
[2022-11-03] MEDS: ASPIRIN 81 MG CHEWABLE TABLETS PO SCH ×2 (11:02→13:06)
[2022-11-03] MEDS: LACTOBACILLUS ACIDOPHILUS 1 TABLET PO SCH ×2 (11:03→13:07)
[2022-11-03] MEDS: ENOXAPARIN NA (PORCINE) 40 MG/0.4 ML DISP.SYRIN SQ SCH ×2 (11:03→13:07)
[2022-11-03] MEDS: HYDROCHLOROTHIAZIDE 25 MG TABLET (FP) PO SCH ×2 (11:03→13:06)
[2022-11-03] MEDS: ATORVASTATIN CA 20 MG TABLET (FP) PO SCH ×2 (11:03→13:07)
[2022-11-03] MEDS: amLODIPine BESYLATE 5 MG TABLET (FP) PO SCH ×2 (11:04→13:06)
[2022-11-03] MEDS: CALCIUM 500MG/VIT-D 200 UNITS COMBO TABLET (FP) PO SCH ×2 (11:04→13:07)
[2022-11-03] MEDS ORDERED: INSULIN (NOVOLOG) ASPART 100 UNITS/ML 10ML VIAL ONE ×2 (12:54→16:56)
[2022-11-03 18:58] VITALS: BP 109/55; PULSE 53; TEMP 98.9
[2022-11-03] MEDS: LOSARTAN POTASSIUM 25 MG TABLET PO SCH (22:10)
[2022-11-03] MEDS: GABAPENTIN 300 MG CAPSULE PO SCH (22:11)
[2022-11-04] MEDS: BISACODYL 5 MG TABLET.DR (FP) PO SCH (00:32)
[2022-11-04] MEDS: DOCUSATE SODIUM 100 MG CAPSULE (FP) PO SCH (00:32)
[2022-11-04] MEDS: INSULIN (NOVOLOG) ASPART 100 UNITS/ML 10ML VIAL SQ SCH (00:36)
== END 2022-11-03 22:20 ==
LOC: JER 06:12 → JERBED 07:40 → J4W 11:27
PROVIDERS: ADMIT Internal Medicine; ATTEND Internal Medicine
PROC: 3E033NZ Introduction of Analgesics, Hypnotics, Sedatives into Peripheral Vein, Percutaneous Approach (ICD-10-PCS; principal; 2022-11-02)
PROC: 3E023GC Introduction of Other Therapeutic Substance into Muscle, Percutaneous Approach (ICD-10-PCS; 2022-11-02)
PROC: 3E033GC Introduction of Other Therapeutic Substance into Peripheral Vein, Percutaneous Approach (ICD-10-PCS; 2022-11-02)
DX: I48.91 Unspecified atrial fibrillation (principal); R29.6 Repeated falls; I25.10 Atherosclerotic heart disease of native coronary artery without angina pectoris; I11.9 Hypertensive heart disease without heart failure; E78.5 Hyperlipidemia, unspecified; E11.9 Type 2 diabetes mellitus without complications; K21.9 Gastro-esophageal reflux disease without esophagitis; F41.9 Anxiety disorder, unspecified; I25.2 Old myocardial infarction
CPT/HCPCS: 0241U-QW; 36415; 71045-TC-FY; 71275-TC; 74174-TC; 78452-TC; 80053; 80061; 82962; 83690; 83735; 83880; 84100; 84443; 84484; 85025; 85610; 85730; 93005; 93010; 93017; 93306-TC; 96365; 96372; 96376; 99285-25; A9502; G0378; J2785; Q9967

== ENCOUNTER 2023-03-03 08:19 | Observation (INO) | payer OTHER ==
[2023-03-03 08:39] VITALS: BMI 23.3
[2023-03-03] MEDS ORDERED: METOPROLOL TARTRATE 5 MG/5 ML VIAL IVPUSH ONE (08:56)
[2023-03-03] MEDS ORDERED: METOPROLOL TARTRATE 5 MG/5 ML VIAL ONE (09:01)
[2023-03-03 09:12] LABS: BASO % 0.4 % (0-2.0); EOS % 0.3 % (0-4.5); HEMATOCRIT 40.5 % (32.4-45.2); HEMOGLOBIN 13.7 GM/dL (10.7-15.3); LYMPH % 11.6 % (8-40); MCH 30.3 pg (25.7-33.7); MCHC 33.7 g/dl (32.0-36.0); MEAN PLT VOLUME 8.1 fl (7.5-11.1); MONO % 4.8 % (3.8-10.2); NEUT % 82.9 % (42.8-82.8); PLATELET COUNT 224 10^3/uL (134-434); RBC 4.51 M/mm3 (3.60-5.2); RDW 13.2 % (11.6-15.6); WHITE BLOOD COUNT 9.2 K/mm3 (4.0-10.0)
[2023-03-03 09:30] LABS: POTASSIUM 5.2 mmol/L (3.5-5.1)
[2023-03-03 09:32] LABS: CALCIUM 9.4 mg/dL (8.5-10.1)
[2023-03-03 09:33] LABS: ALBUMIN 3.8 g/dl (3.4-5.0); BLOOD UREA NITROGEN 18.5 mg/dL (7-18)
[2023-03-03 09:36] LABS: CREATININE 0.6 mg/dL (0.55-1.3)
[2023-03-03 09:37] LABS: BILIRUBIN,TOTAL 0.4 mg/dL (0.2-1); TOT PROT 7.5 g/dl (6.4-8.2)
[2023-03-03 09:57] LABS: EPI CELLS 3 /uL (0-25.1); HYALINE CASTS 0 /uL (0-3.1); PH,URINE 8.5 (5.0-8.0); URINE APPEARANCE CLEAR; URINE BACTERIA >9,000 /uL (0-1359); URINE BILIRUBIN NEGATIVE (NEGATIVE); URINE COLOR YELLOW; URINE GLUCOSE (UA) TRACE (NEGATIVE); URINE KETONE 1+ (NEGATIVE); URINE LEUK ESTERASE 3+ (NEGATIVE); URINE NITRITE POSITIVE (NEGATIVE); URINE PROTEIN NEGATIVE (NEGATIVE); URINE RBC 18 /uL (0-23.9); URINE UROBILINOGEN 0.2 mg/dL (0.2-1.0); URINE WBC 1608 /uL (0-25.8)
[2023-03-03 10:24] LABS: INR 1.03 (0.83-1.09); PROTHROMBIN TIME (PATIENT) 11.9 SEC (9.7-13.0)
[2023-03-03] MEDS ORDERED: CEFTRIAXONE 1,000 MG in DEXTROSE 5%-WATER - 50 ML IVPB ONE (11:09)
[2023-03-03] MEDS ORDERED: CEFTRIAXONE 1 GM/50 ML BAG ONE (11:11)
[2023-03-03] MEDS ORDERED: SENNOSIDES 8.6MG TABLET (FP) PO PRN (12:42)
[2023-03-03] MEDS: ISOSORBIDE MONONITRATE 30 MG TAB.SR.24H (FP) PO SCH (15:36)
[2023-03-03] MEDS: amLODIPine BESYLATE 5 MG TABLET (FP) PO SCH (15:36)
[2023-03-03] MEDS: INSULIN SLIDING SCALE (NOVOLOG) 1 VIAL SQ SCH (17:17)
[2023-03-03] MEDS: ACETAMINOPHEN 500 MG TABLET (FP) PO PRN (19:58)
[2023-03-03] MEDS: BISACODYL 5 MG TABLET.DR (FP) PO SCH (21:45)
[2023-03-03] MEDS: DOCUSATE SODIUM 100 MG CAPSULE (FP) PO SCH (21:47)
[2023-03-03] MEDS: GABAPENTIN 300 MG CAPSULE PO SCH (21:50)
[2023-03-03] MEDS: HEPARIN NA (PORCINE) 5,000 UNITS/ML 1ML VIAL SQ SCH (21:50)
[2023-03-03] MEDS: ATORVASTATIN CA 20 MG TABLET (FP) PO SCH (21:50)
[2023-03-03] MEDS: LOSARTAN POTASSIUM 50 MG TABLET PO SCH (21:52)
[2023-03-03] MEDS ORDERED: LIDOCAINE PATCH REMOVAL MC SCH (22:00)
[2023-03-04] MEDS: ACETAMINOPHEN 500 MG TABLET (FP) PO PRN ×3 (05:03→21:41)
[2023-03-04] MEDS: INSULIN SLIDING SCALE (NOVOLOG) 1 VIAL SQ SCH ×3 (06:25→17:06)
[2023-03-04 08:20] LABS: BASO % 0.4 % (0-2.0); EOS % 1.3 % (0-4.5); HEMATOCRIT 37.5 % (32.4-45.2); HEMOGLOBIN 12.4 GM/dL (10.7-15.3); LYMPH % 28.1 % (8-40); MCH 30.2 pg (25.7-33.7); MCHC 32.9 g/dl (32.0-36.0); MEAN CELL VOLUME 91.7 fl (80-96); MEAN PLT VOLUME 8.6 fl (7.5-11.1); MONO % 7.4 % (3.8-10.2); NEUT % 62.8 % (42.8-82.8); PLATELET COUNT 230 10^3/uL (134-434)
[2023-03-04 08:42] LABS: POTASSIUM 4.6 mmol/L (3.5-5.1)
[2023-03-04 08:44] LABS: CALCIUM 8.9 mg/dL (8.5-10.1)
[2023-03-04 08:45] LABS: BLOOD UREA NITROGEN 16.4 mg/dL (7-18)
[2023-03-04 08:48] LABS: CREATININE 0.5 mg/dL (0.55-1.3)
[2023-03-04] MEDS ORDERED: CEFTRIAXONE 1 GM in DEXTROSE 5%-WATER - 50 ML IVPB ONE (09:17)
[2023-03-04] MEDS ORDERED: ISOSORBIDE MONONITRATE 30 MG TAB.SR.24H (FP) PO SCH (10:00)
[2023-03-04] MEDS ORDERED: LIDOCAINE 5% TOPICAL PATCH TP SCH ×2 (10:00→12:18)
[2023-03-04] MEDS ORDERED: amLODIPine BESYLATE 5 MG TABLET (FP) PO SCH (10:00)
[2023-03-04] MEDS ORDERED: CEFTRIAXONE 1 GM in DEXTROSE 5%-WATER - 50 ML IVPB SCH (10:00)
[2023-03-04] MEDS ORDERED: metoPROLOL SUCCINATE 25 MG TAB.SR.24H (FP) PO SCH (10:00)
[2023-03-04] MEDS: ASPIRIN 81 MG CHEWABLE TABLETS PO SCH (10:04)
[2023-03-04] MEDS: LOSARTAN POTASSIUM 50 MG TABLET PO SCH ×2 (10:05→21:41)
[2023-03-04] MEDS: ISOSORBIDE MONONITRATE 30 MG TAB.SR.24H (FP) PO SCH (10:05)
[2023-03-04] MEDS: LACTOBACILLUS ACIDOPHILUS 1 TABLET PO SCH (10:05)
[2023-03-04] MEDS: HEPARIN NA (PORCINE) 5,000 UNITS/ML 1ML VIAL SQ SCH ×2 (10:06→21:42)
[2023-03-04] MEDS: amLODIPine BESYLATE 5 MG TABLET (FP) PO SCH (10:07)
[2023-03-04] MEDS: LIDOCAINE 5% TOPICAL PATCH TP SCH (10:07)
[2023-03-04] MEDS: AMIODARONE HCL 200 MG TABLET PO SCH (12:29)
[2023-03-04] MEDS: LIDOCAINE PATCH REMOVAL MC SCH ×2 (16:39→21:43)
[2023-03-04] MEDS: BISACODYL 5 MG TABLET.DR (FP) PO SCH (21:41)
[2023-03-04] MEDS: ATORVASTATIN CA 20 MG TABLET (FP) PO SCH (21:41)
[2023-03-04] MEDS: DOCUSATE SODIUM 100 MG CAPSULE (FP) PO SCH (21:42)
[2023-03-04] MEDS: GABAPENTIN 300 MG CAPSULE PO SCH (21:42)
[2023-03-05] MEDS: ACETAMINOPHEN 500 MG TABLET (FP) PO PRN (05:54)
[2023-03-05] MEDS: INSULIN SLIDING SCALE (NOVOLOG) 1 VIAL SQ SCH ×2 (06:07→11:55)
[2023-03-05 06:57] VITALS: RESP 18
[2023-03-05] MEDS ORDERED: metoPROLOL SUCCINATE 25 MG TAB.SR.24H (FP) PO SCH (10:00)
[2023-03-05] MEDS: ASPIRIN 81 MG CHEWABLE TABLETS PO SCH (10:32)
[2023-03-05] MEDS: LACTOBACILLUS ACIDOPHILUS 1 TABLET PO SCH (10:33)
[2023-03-05] MEDS: AMIODARONE HCL 200 MG TABLET PO SCH (10:33)
[2023-03-05] MEDS: HEPARIN NA (PORCINE) 5,000 UNITS/ML 1ML VIAL SQ SCH (10:34)
[2023-03-05] MEDS: LIDOCAINE 5% TOPICAL PATCH TP SCH (10:35)
[2023-03-05] MEDS: ISOSORBIDE MONONITRATE 30 MG TAB.SR.24H (FP) PO SCH (10:36)
[2023-03-05] MEDS: amLODIPine BESYLATE 5 MG TABLET (FP) PO SCH (10:54)
[2023-03-05 10:57] VITALS: BP 140/75; PULSE 61; TEMP 97.6
[2023-03-05] MEDS: LOSARTAN POTASSIUM 50 MG TABLET PO SCH (10:57)
== END 2023-03-05 14:14 ==
LOC: JER 08:19 → JERBED 11:53 → J4S 15:18
PROVIDERS: ADMIT Internal Medicine; ATTEND Internal Medicine
PROC: 3E03329 Introduction of Other Anti-infective into Peripheral Vein, Percutaneous Approach (ICD-10-PCS; principal; 2023-03-03)
PROC: 3E023GC Introduction of Other Therapeutic Substance into Muscle, Percutaneous Approach (ICD-10-PCS; 2023-03-03)
PROC: 3E013VG Introduction of Insulin into Subcutaneous Tissue, Percutaneous Approach (ICD-10-PCS; 2023-03-03)
DX: I48.0 Paroxysmal atrial fibrillation (principal); I25.10 Atherosclerotic heart disease of native coronary artery without angina pectoris; I11.9 Hypertensive heart disease without heart failure; Z95.1 Presence of aortocoronary bypass graft; E11.9 Type 2 diabetes mellitus without complications; R07.89 Other chest pain; Z79.4 Long term (current) use of insulin
CPT/HCPCS: 36415; 71045-TC-FY; 80048; 80053; 81003; 82962; 84484; 85025; 85610; 85730; 87086; 87186; 87635; 93005; 93010; 96365; 96366; 96372; 99285-25; G0378; J1644

== ENCOUNTER 2024-03-20 12:25 | Emergency (ER) | payer OTHER ==
[2024-03-20 13:03] VITALS: BP 140/79; PULSE 60; RESP 18; TEMP 98.9; BMI 25.7
== END 2024-03-20 19:26 | disposition home or self-care (01) ==
LOC: FER 12:25
DX: S70.12XA Contusion of left thigh, initial encounter (principal); M25.552 Pain in left hip; M79.605 Pain in left leg; X58.XXXA Exposure to other specified factors, initial encounter
CPT/HCPCS: 73700-TC-RT; 99284-25